=== PATIENT | male | born 1940 | race Caucasian/White ===

== ENCOUNTER → 2023-11-11 10:00 | Outpatient (REF) | payer MEDICARE, OTHER, SELFPAY | LOC: WDC 10:00 | PROVIDERS: ATTENDING PHYSICIAN Nurse Practitioner Adult Health; FAMILY PHYSICIAN Physician Assistant Medical | DX: N63.10 Unspecified lump in the right breast, unspecified quadrant (principal); N63.41 Unspecified lump in right breast, subareolar | CPT/HCPCS: 76642; 77062; 77066 ==

== ENCOUNTER → 2023-11-28 12:57 | Outpatient (REF) | payer OTHER, MEDICARE, SELFPAY ==
[2023-11-28 13:51] LABS: Potassium 4.4 mmol/L (3.5-5.1)
== END ==
LOC: OLAB 12:57
PROVIDERS: ATTENDING PHYSICIAN Student in an Organized Health Care Education/Training Program
DX: N18.6 End stage renal disease (principal)
CPT/HCPCS: 36415; 84132

== ENCOUNTER 2024-01-22 07:58 | Day surgery (SDC) | payer MEDICARE, OTHER, SELFPAY ==
[2024-01-22] VITALS (10 sets, daily range): BP systolic 108–145; BP diastolic 43–97; BMI 25.1
[2024-01-22 08:20] LABS: Hematocrit 29.3 % (39.0-52.0); Hemoglobin 9.1 g/dL (13.0-18.0); Mean Corp Hgb Conc. 31.1 g/dL (33.0-37.0); Mean Corpuscular Hgb 29.4 pg (27.0-31.0); Mean Corpuscular Volume 94.5 fL (80.0-94.0); Mean Platelet Volume 11.4 fL (7.4-10.4); Platelet Count 125 10^3/uL (130-400); Red Cell Dist. Width 16.6 % (11.5-14.5); White Blood Cell Count 5.7 10^3/uL (4.8-10.8)
[2024-01-22 08:39] LABS: Blood Urea Nitrogen 45 mg/dl (9-20); Carbon Dioxide 34 mmol/L (22-30); Chloride 94 mmol/L (98-107); Estimated Creatinine Clearance 11 ml/min; Glucose 99 mg/dl (70-99); Potassium 4.4 mmol/L (3.5-5.1); Sodium 136 mmol/L (135-145); eGFR 9.78
--- NOTE | 2024-01-22 09:46 | W.SUR.PREOP ---
Pre-Operative Surgical Note
-
I have examined this patient prior to the performance of the scheduled procedure.
The patient's condition is unchanged from the time of the current History and
Physical and the patient is able to undergo the scheduled procedure.
--- NOTE | 2024-01-22 11:09 | W.SUR.POST ---
Surgical Immediate Post Op
Note
Pre Op Diagnosis: ESRD
Post Op Diagnosis: ESRD
Procedure Performed: Right upper extremity fistulogram with angioplasty to outflow vein occlusion
Primary Surgeon: Aniceto Baker MD
Secondary Surgeons: N/A
Anesthesia: MAC
Estimated Blood Loss: Less than 5 cc
Fluids: See anesthesia flowsheet
Drains/Shunts: N/A
Specimens/Cultures: N/A
Doppler/Duplex/Angio (Y/N): Y
Complications: None
Operative Findings: Positive thrill following procedure
--- NOTE | 2024-01-22 13:26 | OR.RPT ---
Operative Report
Operative Report
PROCEDURE DATE: 01/22/2024
Preoperative diagnosis: End-stage renal disease on hemodialysis with prolonged bleeding after hemodialysis.
Postoperative diagnosis: Same
Procedure:
1. Right upper extremity fistulogram and central venogram.
2. Balloon angioplasty of the outflow vein occlusion with a 6 mm, 8 mm, 7 mm angioplasty balloons.
3. Supervision interpretation.
Surgeon: Samuel
Accounting Specialist: None
Complications: None
Anesthesia: Local, sedation
Fluoroscopy:
5.1 min
14 mGy
3.33 Gy.cm2
Indications for procedure:
Referred back by appraiser art due to prolonged bleeding after hemodialysis. Patient also noted to me some issues with flow on dialysis. Risk/benefits/alternatives of fistulogram were also discussed. Patient understood all wish to proceed.
Description of procedure:
Patient was identified, brought to the operating room. Placed on the table in the supine position. After the adequate administration of anesthesia, the patient was prepped and draped in the standard surgical fashion. A standard preoperative
timeout was undertaken and everybody was in agreement with the plan.
The outflow vein of the fistula was imaged under duplex (sterile ultrasound). It appeared in the outflow and the more proximal forearm there appeared to be a stenosis. Therefore I elected to puncture and a central facing direction. The outflow
cephalic vein of the radiocephalic arteriovenous fistula was punctured in the distal forearm in a central facing direction with a micropuncture kit under direct duplex ultrasound guidance. A 4 [place] sheath was then advanced over a 0.035 inch wire.
Fistulogram was obtained. This demonstrated a patent immediate outflow segment of the fistula. There was a moderate-sized collateral but the main outflow vein itself was occluded for segment of about 6 cm or 8 cm. There is reconstitution in the
antecubital fossa. Central venography did fail to demonstrate any significant central venous stenosis. At this point I had a wire past the area of occlusion already with a 0.035 inch wire. I then exchanged for a 0.018 inch wire. I performed
balloon angioplasty with a 6 mm angioplasty balloon of the occlusion area. Prior to doing this, however, due to the profile of the balloon size I needed to exchange for at least a 5 [place]er sheath. I therefore had used a 6 [place] sheath. Given the
slow deflation of the balloon I elected to switch to a 0.035 inch platform which I did. I then performed angioplasty again of that segment in the more proximal segment of the occlusion with a 6 mm long balloon. Completion angiogram now
demonstrated a good result. Significantly improved flow. However there was still some residual stenosis especially in the more proximal outflow. Therefore I then used an 8 mm angioplasty balloon with a prolonged inflation. I could not get the
balloon waist to resolve fully in the proximal outflow segment but it mostly resolved. Completion angiogram however demonstrated significant improvement. Mild intimal irregularity in the proximal outflow portion of the prior occluded segment.
Therefore I used a 7 mm shorter balloon (7 mm x 4 cm to reangioplasty that. Completion angiogram now demonstrated good result. Still mild intimal defect or dissection but did not appear flow-limiting and the main lumen was nicely patent now.
There is brisk flow in through the fistula and much less of flow in the collateral at this point. Therefore is very satisfied. The wires and catheters were withdrawn. A 4-0 Monocryl pursestring stitch was placed around the sheath entry site and
the sheath was withdrawn, the stitch was tied down. Manual pressure was also gently applied. The patient tolerated the procedure well. He had
Thrill in the fistula upon completion. Much less pulsatility.
== END 2024-01-22 13:12 | disposition home or self-care (01) ==
LOC: CATH 07:58
PROVIDERS: ATTENDING PHYSICIAN Surgery Vascular Surgery; FAMILY PHYSICIAN Physician Assistant Medical
DX: T82.838A Hemorrhage due to vascular prosthetic devices, implants and grafts, initial encounter (principal); T82.858A Stenosis of other vascular prosthetic devices, implants and grafts, initial encounter; Y83.2 Surgical operation with anastomosis, bypass or graft as the cause of abnormal reaction of the patient, or of later complication, without mention of misadventure at the time of the procedure; I12.0 Hypertensive chronic kidney disease with stage 5 chronic kidney disease or end stage renal disease; N18.6 End stage renal disease; Z99.2 Dependence on renal dialysis; Z87.891 Personal history of nicotine dependence
CPT/HCPCS: 36902; 80048; 85027; 85730; 86850; 86900; 86901; 93005; C1725; C1769; C1894; Q9967

== ENCOUNTER → 2024-04-06 10:40 | Outpatient (REF) | payer MEDICARE, OTHER, SELFPAY ==
[2024-04-06 11:44] LABS: % Basophils 0.6 % (0-2); % Eosinophils 2.7 % (0-6); % Immature Granulocytes 1.1 % (0-0.5); % Neutrophils 65.6 % (42.2-75.2); Absolute Basophils 0.1 10^3/uL (0-0.2); Absolute Eosinophils 0.2 10^3/uL (0-0.7); Absolute Immature Granulocytes 0.1 10^3/uL (0-0.05); Absolute Lymphocytes 1.5 10^3/uL (1.2-3.4); Absolute Monocytes 0.9 10^3/uL (0.1-0.6); Absolute Neutrophils 5.3 10^3/uL (1.4-6.5); Hematocrit 29.7 % (39.0-52.0); Hemoglobin 9.2 g/dL (13.0-18.0); Mean Corpuscular Volume 93.7 fL (80.0-94.0); Nucleated Red Blood Cells % 0 % (-); Platelet Count 151 10^3/uL (130-400); Red Blood Cell Count 3.17 10^6/uL (4.70-6.10); Red Cell Dist. Width 16.3 % (11.5-14.5); White Blood Cell Count 8.1 10^3/uL (4.8-10.8)
[2024-04-06 12:15] LABS: Iron 102 ug/dl (49-181)
[2024-04-06 12:25] LABS: Percent Saturation 54 % (20-50); Total Iron Binding Capacity 186 ug/dl (261-462)
[2024-04-06 13:13] LABS: Folate 19.4 ng/ml (2.76-20); Vitamin B12 > 1000 pg/ml (239-931)
== END ==
LOC: REG 10:40
PROVIDERS: ATTENDING PHYSICIAN Internal Medicine Hematology & Oncology; FAMILY PHYSICIAN Physician Assistant Medical
DX: N18.9 Chronic kidney disease, unspecified (principal); D46.9 Myelodysplastic syndrome, unspecified; D51.9 Vitamin B12 deficiency anemia, unspecified
CPT/HCPCS: 36415; 82607; 82728; 82746; 83540; 83550; 85025

== ENCOUNTER → 2024-04-27 09:36 | Outpatient (REF) | payer MEDICARE, OTHER, SELFPAY ==
[2024-04-27 11:17] LABS: ALT (SGPT) 17 U/L (0-50); AST (SGOT) 25 U/L (17-59); Albumin 4.4 g/dl (3.5-5.0); Alkaline Phosphatase 116 U/L (38-126); Blood Urea Nitrogen 43 mg/dl (9-20); Calcium 9.8 mg/dl (8.4-10.2); Carbon Dioxide 28 mmol/L (22-30); Chloride 95 mmol/L (98-107); Glucose 94 mg/dl (70-99); HDL Cholesterol 43 mg/dl; LDL Cholesterol, Calculated 45 mg/dl; Magnesium 2.8 mg/dl (1.6-2.3); Potassium 5.8 mmol/L (3.5-5.1); Sodium 135 mmol/L (135-145); Total Bilirubin 0.5 mg/dl (0.2-1.3); Total Cholesterol 105 mg/dl (50-199); Total Protein 6.9 g/dl (6.3-8.2); Triglyceride 88 mg/dl (10-149); Very Low Density Lipoprotein 17 mg/dl (0-30); eGFR 6.53
[2024-04-27 11:23] LABS: Glycohemoglobin (HgbA1c) 4.6 % (4.0-5.6)
== END ==
LOC: REG 09:36
PROVIDERS: ATTENDING PHYSICIAN Physician Assistant Medical
DX: Z00.00 Encounter for general adult medical examination without abnormal findings (principal); I10 Essential (primary) hypertension; N18.6 End stage renal disease; R73.01 Impaired fasting glucose; E78.2 Mixed hyperlipidemia; Z87.19 Personal history of other diseases of the digestive system
CPT/HCPCS: 36415; 80053; 80061; 83036; 83735

== ENCOUNTER → 2024-05-15 08:39 | Outpatient (REF) | payer MEDICARE, OTHER, SELFPAY | LOC: RAD 08:39 | PROVIDERS: ATTENDING PHYSICIAN Surgery Vascular Surgery; FAMILY PHYSICIAN Physician Assistant Medical | DX: I77.0 Arteriovenous fistula, acquired (principal) | CPT/HCPCS: 93990 ==

== ENCOUNTER 2025-02-23 17:27 | Inpatient (IN) | payer MEDICARE, OTHER, SELFPAY ==
[2025-02-23] VITALS (10 sets, daily range): BP systolic 95–136; BP diastolic 39–63; BMI 23.0; BMI 24.4
--- NOTE | 2025-02-23 13:06 | ED.GENMED ---
History of Present Illness
General
Chief Complaint: Weakness
Time Seen by Provider: 02/23/25 12:39
History of Present Illness
History of Present Illness:
84-year-old male with history of end-stage renal disease on dialysis presents to the emergency department for evaluation of chest congestion and coughing as well as fever and fatigue for the past 3 to 4 days. Came from dialysis today after
completing a full session, has not missed any dialysis sessions recently. Denies chest pain or dyspnea.
Past History
Past History
ED Past Medical History: HTN and Renal failure
ED Past Surgical History: Other
Social History
Tobacco: Non-smoker
Alcohol: None
Drug: None
Personal:
Living: with family
Employment: Retired
Family History
Family History: Other
Review of Systems
Review of Systems
Allergies reviewed?: Yes
All Other Systems: ROS reviewed and negative except as documented in HPI and ROS
Phy Exam
Physical Exam
Physical Exam:
GEN: Well appearing, NAD, WDWN
HEENT: Oral mucosa moist, no scleral icterus
Cardiac: Tachycardic with some irregularity, no murmur
Lung: Tachypneic, inspiratory and expiratory rhonchi heard throughout all lung shanks, does not clear with coughing
MSK: No gross deformity or injuries
Skin: Good color, no pallor or jaundice, no rashes. AV fistula in the right arm, strong thrill
Neuro: AO x3, moves all extremities freely
Psych: Calm, cooperative
Sepsis
Sepsis Screening
Sepsis Assessment: Sepsis
Sepsis Screen
Sepsis Screen: Sepsis
Date: 02/23/25
Time: 16:00
Course
Orders/Labs/Results
Orders:
Orders
02/23/25 12:42
Electrocardiogram (*1) Urgent
Reason for Study: Chest Pain
02/23/25 12:43
EKG- Treatment ONCE
02/23/25 12:50
CR Chest - 2 Views Urgent
Comment:
Reason For Exam: cough/fever
02/23/25 12:56
CMP [Comprehensive Metabolic Panel] Urgent
COVID-19 Antigen Urgent
Source: Nasal Swab
Complete Blood Count/With Diff Urgent
Influenza A+B Rapid Molecular Urgent
GIOVANI Source: Nasal Swab
Specimen Description:
02/23/25 12:58
Lactic Acid Urgent
02/23/25 13:00
Blood Culture Q30M
GIOVANI Source: Blood/Venous
Specimen Description:
02/23/25 14:11
Blood Culture Q30M
GIOVANI Source: Blood/Venous
Specimen Description:
02/23/25 14:32
Azithromycin 500 mg/250 ml [Zithromax Infusion] 500 mg in 250 ml IV NOW
CefTRIAXone [Rocephin] 1,000 mg IV NOW STA
Abnormal Lab Results
02/23/25
12:56
WBC 27.6 H 10^3/uL
(4.8-10.8)
RBC 3.75 L 10^6/uL
(4.70-6.10)
Hgb 10.9 L g/dL
(13.0-18.0)
Hct 34.9 L %
(39.0-52.0)
MCHC 31.2 L g/dL
(33.0-37.0)
RDW 19.3 H %
(11.5-14.5)
Plt Count 85 L 10^3/uL
(130-400)
MPV 12.3 H fL
(7.4-10.4)
Abs Immat Gran (auto) 0.2 H 10^3/uL
(0-0.05)
Absolute Neuts (auto) 25.6 H 10^3/uL
(1.4-6.5)
Absolute Lymphs (auto) 0.4 L 10^3/uL
(1.2-3.4)
Absolute Monos (auto) 1.5 H 10^3/uL
(0.1-0.6)
Immature Gran % 0.8 H %
(0-0.5)
Neutrophils % 92.5 H %
(42.2-75.2)
Lymphocytes % 1.3 L %
(20.5-51.1)
BUN 31 H mg/dl
(9-20)
Creatinine 4.8 H* mg/dL
(0.7-1.3)
Glucose 114 H mg/dl
(70-99)
AST 88 H U/L
(17-59)
02/23/25 12:56
02/23/25 12:56
Vital Signs
Initial and Last Documented VS:
Initial Vital Signs
Temp Pulse Resp BP Pulse Ox
100.3 F 105 28 136/56 93
02/23/25 12:38 02/23/25 12:38 02/23/25 12:38 02/23/25 12:38 02/23/25 12:38
Last Documented Vital Signs
Temp Pulse Resp BP Pulse Ox
100.3 F 101 27 119/50 95
02/23/25 12:38 02/23/25 15:30 02/23/25 15:30 02/23/25 15:00 02/23/25 15:45
MDM/Problems Addressed
MDM/Problems Addressed:
Patient with audible rhonchi and coughing as well as tachypnea and significant leukocytosis with fever, although chest x-ray shows no acute infiltrate we will treat for community-acquired pneumonia. Given his age and comorbidities including renal
disease on dialysis will admit to the hospitalist service for IV antibiotics
*Critical Care Note
Total Time (30-74mins, 75-104mins- exclusive of procedures): Not Applicable
ED Attending Note
-
Portions of this chart may have been created with voice recognition software.� Occasional wrong word or��sound alike� substitutions may have occurred due to the inherent limitations of voice recognition software.
Discharge Plan
Departure
Patient Disposition: Admit
Date of Disposition: 02/23/25
Time of Disposition: 14:35
Admit to: Med/Surg
Presentation/result/management discussed w/ accepting MD/DO: Hospitalist
Discharge Problem:
Community acquired pneumonia
Prescriptions:
No Action
multivitamin with folic acid [Tab-A-Mike] 1 TABLET tablet
1 tab PO HS
rosuvastatin 10 MG tablet
10 mg PO HS
[facility] 1 EACH tablet
1 ea PO DAILY
amlodipine 10 MG tablet
10 mg PO HS
calcium acetate 667 mg Tablet
1,334 mg PO BID@1200,1700
furosemide 80 mg tablet
80 mg PO DAILY
aspirin 325 mg Tablet
325 mg PO BIDPRN PRN (Reason: fever)
Velvet-Mike 0.8 mg tablet
1 tab PO HS
doxazosin 2 mg Tablet
2 mg PO HS
calcium acetate 667 mg Tablet
667 mg PO DAILY
pantoprazole 40 mg tablet,delayed release (DR/EC)
40 mg PO QPM
Referrals:
Nay Albert PA-C [Family Provider] -
Interventions
Interventions:
*Risk Screen - Suicide Last Done: 02/23/25 12:41
*General Assessment Last Done: 02/23/25 12:41
*Neglect/Abuse Screening Last Done: 02/23/25 12:41
*ED- Fall Risk Assessment Last Done: 02/23/25 12:41
*ED COVID-19 Vaccine History Last Done: 02/23/25 12:41
ED- Cardiac Assessment Last Done: 02/23/25 13:32
ED- Neurological Assessment Last Done: 02/23/25 13:32
ED- Pulmonary Assessment Last Done: 02/23/25 13:32
Discharge Date and Time
Print Language: BURMESE
[2025-02-23 13:25] LABS: COVID-19 Antigen Negative (Negative)
[2025-02-23 13:27] LABS: Lactic Acid 1.5 mmol/L (0.7-2.0)
[2025-02-23 13:29] LABS: Hematocrit 34.9 % (39.0-52.0); Hemoglobin 10.9 g/dL (13.0-18.0); Mean Corp Hgb Conc. 31.2 g/dL (33.0-37.0); Mean Corpuscular Hgb 29.1 pg (27.0-31.0); Mean Corpuscular Volume 93.1 fL (80.0-94.0); Mean Platelet Volume 12.3 fL (7.4-10.4); Platelet Count 85 10^3/uL (130-400); Red Blood Cell Count 3.75 10^6/uL (4.70-6.10); Red Cell Dist. Width 19.3 % (11.5-14.5); White Blood Cell Count 27.6 10^3/uL (4.8-10.8)
[2025-02-23 13:33] LABS: ALT (SGPT) 41 U/L (0-50); AST (SGOT) 88 U/L (17-59); Albumin 4.4 g/dl (3.5-5.0); Alkaline Phosphatase 90 U/L (38-126); Blood Urea Nitrogen 31 mg/dl (9-20); Calcium 9.3 mg/dl (8.4-10.2); Carbon Dioxide 28 mmol/L (22-30); Chloride 99 mmol/L (98-107); Estimated Creatinine Clearance 12 ml/min; Glucose 114 mg/dl (70-99); Potassium 4.9 mmol/L (3.5-5.1); Sodium 140 mmol/L (135-145); Total Bilirubin 0.7 mg/dl (0.2-1.3); Total Protein 7.3 g/dl (6.3-8.2); eGFR 11.44
[2025-02-23] MEDS: ROCEPHIN 1000 MG IV (14:46)
[2025-02-23 15:03] LABS: % Basophils 0.1 % (0-2); % Immature Granulocytes 0.8 % (0-0.5); % Lymphocytes 1.3 % (20.5-51.1); % Monocytes 5.3 % (1.7-9.3); % Neutrophils 92.5 % (42.2-75.2); Absolute Immature Granulocytes 0.2 10^3/uL (0-0.05); Absolute Lymphocytes 0.4 10^3/uL (1.2-3.4); Absolute Monocytes 1.5 10^3/uL (0.1-0.6); Absolute Neutrophils 25.6 10^3/uL (1.4-6.5); Nucleated Red Blood Cells % 0 % (-)
[2025-02-23] MEDS: ZITHROMAX INFUSION 250 IV (15:35)
--- NOTE | 2025-02-23 17:02 | HPS.HSE ---
Family Physician
-
Family Physician: Nay Albert
Chief Complaint
-
Cough, chest congestion, weakness
History of Present Illness
84-year-old male was in his usual state of health up until 3 days ago when he started developing cough and chest congestion. Loss of appetite.
Yesterday started with generalized weakness.
Denies history of pneumonia. Denies sick contacts. Denies chest pain or shortness of breath. Denies chills but did have a fever at home, 100.3 �F. Denies nausea or vomiting. 1 episode of diarrhea 2 days ago.
Has ESRD, gets dialysis Saturday, , Saturday. Last dialysis session was today.
Medical History
Past Medical History
Past Medical History: Reports Other
Additional Past Medical History:
ESRD requiring dialysis
Essential hypertension
Hyperlipidemia
Thrombocytopenia
Myelodysplastic syndrome
History of GI bleed
Polyneuropathy
Ambulatory dysfunction, uses a cane
Chronic anemia
Impaired fasting glucose
Past Surgical History: Reports Appendectomy, Tonsilectomy and Other
Additional Past Surgical History:
Right upper extremity AV fistula
Thyroglossal duct cyst removal
Social History
Tobacco: Former Smoker (Quit in the 1970s)
Alcohol: Occasional (1 or 2 glasses of wine per week)
Drug: None
Personal:
Living: With Family
Employment: Not Employed
Family History
Family History: Not pertinent
Allergies / Home Medications
Allergies reflects when Allergies were last updated in [facility].
Home Medications with original date entered in [facility]
Allergy/Medication List:
Allergies
Allergy/AdvReac Type Severity Reaction Status Date / Time
No Known Allergies Allergy Verified 02/23/25 12:40
Home Medications
multivitamin with folic acid 400 mcg tablet (Tab-A-Mike) 1 tab PO HS Supplement 02/21/21
rosuvastatin 10 mg tablet 10 mg PO HS High cholesterol 02/21/21
cartilage 40 mg-collagen II 10 mg-boron 5 mg-hyaluronate 3.3 mg tablet ([employer]) 1 ea PO DAILY herbal 09/07/21
amlodipine 10 mg tablet 10 mg PO HS Blood pressure 10/17/21
calcium acetate 667 mg tablet 1,334 mg PO BID@1200,1700 Kidney Disease 02/06/23
furosemide 80 mg tablet 80 mg PO DAILY Fluid retention/Swelling 02/06/23
aspirin 325 mg tablet 325 mg PO BIDPRN PRN fever 02/23/25
calcium acetate 667 mg tablet 667 mg PO DAILY 02/23/25
doxazosin 2 mg tablet 2 mg PO HS 02/23/25
pantoprazole 40 mg tablet,delayed release 40 mg PO QPM 02/23/25
vitamin B complex-vitamin C-folic acid 0.8 mg tablet (Velvet-Mike) 1 tab PO HS 02/23/25
Review of Systems
-
History Source: Patient and Family
A 12 point ROS was completed and negative except as noted: Yes
Physical Exam
Vital Signs
Vital Signs
Temp Pulse Resp BP Pulse Ox
100.3 F 93 20 108/56 94
02/23/25 12:38 02/23/25 16:15 02/23/25 16:00 02/23/25 16:00 02/23/25 16:15
Physical Exam
General: Well Developed, Well Nourished, No Apparent Distress and Comfortable
HEENT: NormoCephalic, Anicteric and Moist mucous membranes
Respiratory: Wheezes and Rhonchi
Cardiac: S1/S2 and Regular Rhythm
GI: Soft, Non Tender and Non Distended
Genito-urinary: Deferred by me
Musculoskeletal: No Clubbing, No Cyanosis and No Edema
Skin: Warm and Dry
Neuro: AO x 3
Hematologic/Lymphatic: No Lymphadenopathy
Psych: Calm
Laboratory Results
-
02/23/25 12:56
02/23/25 12:56
Laboratory Results
Lactic Acid Cancelled 02/23/25 17:45
Total Bilirubin 0.7 mg/dl (0.2-1.3) 02/23/25 12:56
AST 88 U/L (17-59) H 02/23/25 12:56
ALT 41 U/L (0-50) 02/23/25 12:56
Alkaline Phosphatase 90 U/L (38-126) 02/23/25 12:56
Troponin I Cancelled 02/23/25 12:42
Impression/Plan
-
Acute hypoxic respiratory insufficiency -pulse ox 90% on room air, etiology is likely sepsis and pneumonia. Currently on 4 L nasal cannula oxygen. Wean down as able.
Sepsis due to pneumonia -admit to [facility]. Presentation with tachycardia, leukocytosis, fever. Hemodynamically stable. IV fluid bolus for sepsis not administered in the emergency room due to ESRD, dialysis requirement. Can give gentle IV fluids
for 1 L overnight.
Continue current antibiotics. Check cultures. Check urinary antigens.
Given presentation with mild wheezing and rhonchi, add steroids and inhalers.
Surprisingly chest x-ray is read as clear. Check CT chest to evaluate for pneumonia. Discussed with patient and .
ESRD - on dialysis Saturday, , Saturday. Consult nephrology in AM.
Essential hypertension -stable.
Hyperlipidemia -rosuvastatin.
Myelodysplastic syndrome -with chronic anemia, thrombocytopenia.
Full code
Updated patient's at the bedside.
[2025-02-23] MEDS: DELTASONE 40 MG PO (18:50)
[2025-02-23] MEDS: PROTONIX 40 MG PO (18:50)
[2025-02-23] MEDS: PHOSLO 1334 MG PO (18:50)
[2025-02-23] MEDS: NSS 1000 IV (18:50)
[2025-02-23] MEDS: VENTOLIN NEBULES 2.5 MG INH (20:04)
[2025-02-23] MEDS: THERAGRAN 1 TABLET PO (21:28)
[2025-02-23] MEDS: CRESTOR 10 MG PO (21:28)
[2025-02-23] MEDS: MUCINEX 600 MG PO (21:28)
[2025-02-23] MEDS: HEPARIN 5000 UNITS SC (21:28)
[2025-02-23] MEDS: CARDURA PO (21:29)
[2025-02-24] VITALS (7 sets, daily range): BP systolic 86–135; BP diastolic 41–55; PULSE 84–115; O2SAT 95; BMI 23.5
--- NOTE | 2025-02-24 04:32 | PTCARENOTE ---
Patient's pulse ox on 3L of O2 was in the upper 80's briefly getting to 91% then dropping back down. Increase O2 to 4L. Pulse ox at 92%.
[2025-02-24 07:37] LABS: % Basophils 0.2 % (0-2); % Lymphocytes 2.9 % (20.5-51.1); % Monocytes 2.4 % (1.7-9.3); % Neutrophils 93.5 % (42.2-75.2); Absolute Immature Granulocytes 0.2 10^3/uL (0-0.05); Absolute Lymphocytes 0.6 10^3/uL (1.2-3.4); Absolute Monocytes 0.5 10^3/uL (0.1-0.6); Absolute Neutrophils 17.9 10^3/uL (1.4-6.5); Hematocrit 30.6 % (39.0-52.0); Hemoglobin 9.5 g/dL (13.0-18.0); Mean Corpuscular Hgb 29.1 pg (27.0-31.0); Mean Corpuscular Volume 93.6 fL (80.0-94.0); Mean Platelet Volume 12.7 fL (7.4-10.4); Nucleated Red Blood Cells % 0 % (-); Platelet Count 68 10^3/uL (130-400); Red Blood Cell Count 3.27 10^6/uL (4.70-6.10); Red Cell Dist. Width 19.4 % (11.5-14.5); White Blood Cell Count 19.2 10^3/uL (4.8-10.8)
[2025-02-24] MEDS: VENTOLIN NEBULES 2.5 MG INH ×4 (08:10→19:58)
[2025-02-24 08:11] LABS: ALT (SGPT) 38 U/L (0-50); AST (SGOT) 57 U/L (17-59); Albumin 3.6 g/dl (3.5-5.0); Alkaline Phosphatase 78 U/L (38-126); Blood Urea Nitrogen 46 mg/dl (9-20); Calcium 8.5 mg/dl (8.4-10.2); Carbon Dioxide 22 mmol/L (22-30); Chloride 101 mmol/L (98-107); Estimated Creatinine Clearance 9 ml/min; Glucose 127 mg/dl (70-99); Sodium 136 mmol/L (135-145); Total Bilirubin 0.7 mg/dl (0.2-1.3); eGFR 7.95
[2025-02-24] MEDS: LASIX 80 MG PO (09:43)
[2025-02-24] MEDS: MUCINEX 600 MG PO ×2 (09:44→20:59)
[2025-02-24] MEDS: HEPARIN 5000 UNITS SC ×2 (09:44→21:00)
[2025-02-24] MEDS: DELTASONE 40 MG PO (09:44)
[2025-02-24] MEDS: PHOSLO 667 MG PO (09:44)
--- NOTE | 2025-02-24 10:45 | W.CON.NEPH ---
Consultation
-
Date/Time Consultation Requested: 02/24/25 0730
Date/Time Consultation Performed: 02/24/25 1050
Requesting Provider: Alla Varma
Performing Provider: Aubree Martin
Reason for Consultation: ESRD
Medical History
-
Chief Complaint: cough, weakness
History of Present Illness:
84-year-old male end-stage renal disease on hemodialysis Tuesdays,, and Saturdays at [facility]. He has a right upper extremity AV fistula. He has hypertension on a multidrug regimen as well as anemia typically on NENO therapy
presented to ER yesterday with c/o cough, congestion and gen weakness for 3days. Since onset of symp he was sleeping most of the time at home. Denies sick contacts. Denies chest pain or shortness of breath. Denies chills but did have a fever at
home, 100.3 �F. Denies nausea or vomiting. 1 episode of diarrhea [address] chest shows left upper lobe PNA and requiring 2lit of O2. We are asked to assist in management of his ESRD. blood cultures growing staph aureus too.
Past Medical History
ESRD requiring dialysis TTS
Essential hypertension
Hyperlipidemia
Thrombocytopenia
Myelodysplastic syndrome
History of GI bleed
Polyneuropathy
Ambulatory dysfunction, uses a cane
Chronic anemia
Impaired fasting glucose
right UE AVF
Past Surgical History: Appendectomy, Tonsilectomy and Other (Right upper extremity AV fistula Thyroglossal duct cyst removal)
Social History
Tobacco: Former Smoker
Alcohol: Occasional
Drug: None
Personal:
Living: With Family
Family History
Family History: Not Pertinent
Allergies / Home Medications
Allergy/AdvReac Type Severity Reaction Status Date / Time
No Known Allergies Allergy Verified 02/23/25 12:40
�Medication �Instructions �Recorded �Confirmed �Type
multivitamin with folic acid 400 1 tab PO HS Supplement 02/21/21 02/23/25 History
mcg tablet (Tab-A-Mike)
rosuvastatin 10 mg tablet 10 mg PO HS High cholesterol 02/21/21 02/23/25 History
cartilage 40 mg-collagen II 10 1 ea PO DAILY herbal 09/07/21 02/23/25 History
mg-boron 5 mg-hyaluronate 3.3 mg
tablet ([employer])
amlodipine 10 mg tablet 10 mg PO HS Blood pressure 10/17/21 02/23/25 History
calcium acetate 667 mg tablet 1,334 mg PO BID@1200,1700 Kidney 02/06/23 02/23/25 History
Disease
furosemide 80 mg tablet 80 mg PO DAILY Fluid 02/06/23 02/23/25 History
retention/Swelling
aspirin 325 mg tablet 325 mg PO BIDPRN PRN fever 02/23/25 02/23/25 History
calcium acetate 667 mg tablet 667 mg PO DAILY Kidney Disease 02/23/25 02/23/25 History
doxazosin 2 mg tablet 2 mg PO HS Blood Pressure 02/23/25 02/23/25 History
pantoprazole 40 mg tablet,delayed 40 mg PO QPM Gastrointestinal Issue 02/23/25 02/23/25 History
release
vitamin B complex-vitamin C-folic 1 tab PO HS Supplement 02/23/25 02/23/25 History
acid 0.8 mg tablet (Velvet-Mike)
Review of Systems
-
All other systems: Negative unless noted
Physical Exam
Vital Signs
Vital Signs
Temp Pulse Resp BP Pulse Ox
97.6 F 76 16 121/51 98
02/24/25 16:37 02/24/25 16:37 02/24/25 16:37 02/24/25 16:37 02/24/25 16:37
Lab Results
WBC 19.2 10^3/uL (4.8-10.8) H 02/24/25 06:33
RBC 3.27 10^6/uL (4.70-6.10) L 02/24/25 06:33
Hgb 9.5 g/dL (13.0-18.0) L 02/24/25 06:33
Hct 30.6 % (39.0-52.0) L 02/24/25 06:33
Plt Count 68 10^3/uL (130-400) L 02/24/25 06:33
Sodium 136 mmol/L (135-145) 02/24/25 06:33
Potassium 5.0 mmol/L (3.5-5.1) 02/24/25 06:33
Chloride 101 mmol/L (98-107) 02/24/25 06:33
Carbon Dioxide 22 mmol/L (22-30) 02/24/25 06:33
BUN 46 mg/dl (9-20) H 02/24/25 06:33
Creatinine 6.5 mg/dL (0.7-1.3) H* 02/24/25 06:33
eGFR 7.95 02/24/25 06:33
Glucose 127 mg/dl (70-99) H 02/24/25 06:33
Calcium 8.5 mg/dl (8.4-10.2) 02/24/25 06:33
Albumin 3.6 g/dl (3.5-5.0) 02/24/25 06:33
Physical Exam
General: Awake, Alert, Oriented, AOx3, No Distress and Nontoxic
HEENT: EOMI, Anicteric, Conjunctivae Clear and Facial Symmetry
Respiratory: Crackels, Normal Excursion and Nonlabored Respirations
Cardiac: S1/S2 and Regular Rate/Rhythm
Breast: Deferred by me
Abdomen: Soft, Nontender and Nondistended
Musculoskeletal: No Cyanosis and No Edema
Neuro: Nonfocal/Grossly Intact
Psych: Mood/afflect pleasant, Insight/judgement good and Appropriate
Data Reviewed
-
Radiology: Report Reviewed by me and Discussed with Patient
Labs: Labs Reviewed by me and Discussed with Patient
Assessment/Plan
-
IMP:
Acute hypoxic respiratory insufficiency
Staph aureus sepsis
Left upper lobe PNA
ESRD requiring dialysis TTS
Essential hypertension
Hyperlipidemia
Thrombocytopenia
Myelodysplastic syndrome
History of GI bleed
Polyneuropathy
Ambulatory dysfunction, uses a cane
Chronic anemia
right UE AVF
Plan:
a/w PNA, bld cx staph aureus
completed HD yesterday
cont abx per ID
renal diet
HD tomorrow
monitor bps, seem soft today, hold CCB
--- NOTE | 2025-02-24 11:37 | PHA.VAN.IN ---
Assessment
- Assessment
Renal Function: Patient has ESRD, on chronic Hemodialysis
Hemodialysis Schedule: TThSa
Concomitant Antimicrobials: ceftriaxone, azithromycin
Plan
- Plan
Initial / Loading Dose: 1500mg - administration pending
Maintenance Regimen: dosing by level / HD
Monitoring: random pre-HD 02/25
Pharmacokinetics Vancomycin I
- -
Patient Age: 84
Patient Sex: Male
Vancomycin Day #: 1
Indication: Bacteremia
Requesting Provider: Dr. Valenzuela
Pertinent Antimicrobial Allergies:
NKDA
Height / Weight:
Height 5 ft 9.5 in
Actual Weight 73.17 kg
Pertinent Past Medical History: ESRD on HD TuThSa, MDS
- Vital Signs / Lab Results
Temp Pulse Resp BP Pulse Ox
98.5 F 65 16 116/51 92
02/24/25 08:19 02/24/25 08:19 02/24/25 08:19 02/24/25 08:19 02/24/25 10:06
Lab Results - Hematology
02/23/25 02/24/25
12:56 06:33
WBC 27.6 H 19.2 H
Lab Results - Chemistry
02/23/25 02/24/25
12:56 06:33
BUN 31 H 46 H
Creatinine 4.8 H* 6.5 H*
Estimated Creat Clear 12 9
Albumin 4.4 3.6
02/23/25 02/23/25 02/23/25
12:58 13:45 17:45
Lactic Acid 1.5 Cancelled Cancelled
Microbiology Results
02/23/25 13:00 Blood Culture - Preliminary
Blood/Venous Staphylococcus aureus
Gram Stain - Final
02/23/25 14:11 Blood Culture - Preliminary
Blood/Venous Positive culture in progress
Gram Stain - Final
02/23/25 12:56 Influenza Types A & B (GRACE) - Final
Nasal Swab Negative for Influenza A & B, NAAT
Negative results must be combined with clinical observations
and patient history.
Nucleic Acid Amplification test (NAAT)performed on the
[employer] platform.
--- NOTE | 2025-02-24 11:37 | W.PN.HOSP.TC ---
Today's Communication/Plan
-
Consult ID
Add vancomycin
Assessment / Plan
Assessment / Plan
Gen-AAOx3, NAD
HEENT-NC, AT, anicteric, clear oral mm
Neck-supple
CV-reg, no M, +S1/S2
Lungs-clear B/L
Abd-soft, NT, ND
Ext-no edema
Musculoskeletal-no cyanosis, clubbing
Skin-warm and dry
Neuro-grossly non-focal
Psych-calm, cooperative
Acute hypoxic respiratory insufficiency -pulse ox 90% on room air, etiology is likely sepsis and possible pneumonia. Currently on 2 L nasal cannula oxygen. Wean down as able.
Staph aureus sepsis -source of infection unclear, differential diagnosis includes bacteremia due to AV fistula from dialysis versus pneumonia.
Blood culture sensitivity pending. Add IV vancomycin. Consult infectious disease. Repeat blood cultures.\\
CT chest shows parenchymal opacity in the anterior apex of the left upper lobe. Will need repeat study in 4-6 weeks to document clearance.
WBC count trending down. Afebrile.
ESRD - on dialysis Saturday, , Saturday. Nephrology consulted.
Essential hypertension -stable.
Hyperlipidemia -rosuvastatin.
Myelodysplastic syndrome -with chronic anemia, thrombocytopenia.
Full code
Anticipated Discharge: > 48 hours
Subjective/Interval History
-
Date of Service: February 24, 2025
Patient seen and examined. Feeling better, less weakness. No dyspnea on exertion.
Objective Data
-
Labs:
Laboratory Results
02/24/25
06:33
WBC 19.2 H
Hgb 9.5 L
Hct 30.6 L
Plt Count 68 L
Sodium 136
Potassium 5.0
Chloride 101
Carbon Dioxide 22
BUN 46 H
Creatinine 6.5 H*
Glucose 127 H
Calcium 8.5
Total Bilirubin 0.7
AST 57
ALT 38
Alkaline Phosphatase 78
Vital Signs:
Vital Signs
Temp Pulse Resp BP Pulse Ox
98.5 F 65 16 116/51 92
02/24/25 08:19 02/24/25 08:19 02/24/25 08:19 02/24/25 08:19 02/24/25 10:06
Review of Systems
-
History Source: Patient
All other systems: Reviewed and negative
--- NOTE | 2025-02-24 12:17 | CON.ID ---
Consultation
-
Date/Time Consultation Requested: February 24, 2025 1126
Date/Time Consultation Performed: February 24, 2025 1230
Requesting Provider: Dr. Raul Valenzuela
Performing Provider: Dr. Savannah Staples
Reason for Consultation: Staph sepsis, CAP
Chief Complaint / Past History
Chief Complaint
Weakness, cough
History of Present Illness
84-year-old male with history of end-stage renal disease on hemodialysis via right upper extremity AV fistula, chronic thrombocytopenia who presented to the ED February 23 due to weakness and cough.� He states he started feeling unwell on January
.� He slept most of the day.� On Saturday he continued to poorly with loss of appetite.� He stayed in bed most of the time.� He was was coughing.� He coughed up mucus.� No sinus congestion.� No headache.� He went to dialysis on Saturday.� He was so
weak he could hardly ambulate to his car. �He was therefore directed to the ER.� Temperature 100.3.� White count 27.6.� Chest x-ray no acute pathology.� Chest CT showed left upper lobe opacity.� He was started on ceftriaxone and azithromycin.� The
admission blood cultures x 2 are growing Staphylococcus aureus.� Patient reports he is still coughing but unable to produce sputum.� He does feel better today.� He denies ill contacts.� No nausea or vomiting.� No diarrhea.
Past History
Additional Past Medical History:
Hypertension
End-stage renal disease on dialysis T//S via right upper extremity AV fistula
Chronic thrombocytopenia
Myelodysplastic syndrome
Dyslipidemia
Polyneuropathy
Appendectomy
Thyroglossal duct cyst removal
Allergy History:
No Known Allergies Allergy (Verified 02/23/25 12:40)
Medications Reviewed: Yes
Current Antibiotics:
Ceftriaxone
Azithromycin
Social History
Tobacco: Former Smoker
Alcohol: Occasional
Drug: None
Personal:
Living: With Family
Review of Systems
Review of Systems
General: Change in Appetite
HEENT: Negative Sinus Problems, Headache or Pharyngitis
Respiratory: Cough; Negative Dyspnea or Sputum Production
Gasteroenterology: Negative Nausea, Vomiting or Diarrhea
Genital / Urological: Negative Flank Pain
Endocrine: Weakness and Fatigue
Skin / Hair / Nails: Negative Rash
All systems: All other systems were reviewed and were negative
Vital Signs
Temp Pulse Resp BP Pulse Ox
98.5 F 65 16 116/51 92
02/24/25 08:19 02/24/25 08:19 02/24/25 08:19 02/24/25 08:19 02/24/25 10:06
Physical Exam
Physical Exam
Constitutional: No Acute Distress and Comfortable
Eyes: No Conjunctival Hemorrhage and Sclera Anicteric
Cardiovascular: Regular Rate and S1/S2
Pulmonary: Clear; Negative Rales or Rhonchi
Gastrointestinal: Soft, Non Tender, Non Distended and Normal Bowel Sounds
Extremities: Negative Edema, Splinter Hemorrhage or Janeway Lesions
Neurological: AO x 3
Lab / Diagnostic Study Results
02/24/25 06:33
02/24/25 06:33
Abs Immat Gran (auto) 0.2 10^3/uL (0-0.05) H 02/24/25 06:33
Absolute Neuts (auto) 17.9 10^3/uL (1.4-6.5) H 02/24/25 06:33
Absolute Lymphs (auto) 0.6 10^3/uL (1.2-3.4) L 02/24/25 06:33
Absolute Monos (auto) 0.5 10^3/uL (0.1-0.6) 02/24/25 06:33
Absolute Basos (auto) 0.0 10^3/uL (0-0.2) 02/24/25 06:33
Immature Gran % 1.0 % (0-0.5) H 02/24/25 06:33
Neutrophils % 93.5 % (42.2-75.2) H 02/24/25 06:33
Lymphocytes % 2.9 % (20.5-51.1) L 02/24/25 06:33
Monocytes % 2.4 % (1.7-9.3) 02/24/25 06:33
Eosinophils % 0.0 % (0-6) 02/24/25 06:33
Basophils % 0.2 % (0-2) 02/24/25 06:33
Lactic Acid Cancelled 02/23/25 17:45
Microbiology Results
Micro:
02/23/25 13:00 Blood Culture - Preliminary
Blood/Venous Staphylococcus aureus
Gram Stain - Final
02/23/25 14:11 Blood Culture - Preliminary
Blood/Venous Positive culture in progress
Gram Stain - Final
02/24/25 02:54 MRSA Screen - Pending
Nose
02/23/25 12:56 Influenza Types A & B (GRACE) - Final
Nasal Swab Negative for Influenza A & B, NAAT
Negative results must be combined with clinical observations
and patient history.
Nucleic Acid Amplification test (NAAT)performed on the
[employer] platform.
02/23/[address]: Parenchymal opacity in the anterior apex of the left upper lobe, which could be infectious/inflammatory or neoplastic.
Assessment / Plan
# Staph aureus bacteremia, likely lung source
# VARGAS pneumonia
# Leukocytosis
# ESRD on HD via AVF
-Start cefazolin 1g IV q24.
-DC ceftriaxone/azithromycin.
- Check sputum cx, if able
-TTE
-Repeat blood cultures x 2 in am.
-Trend wbc.
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
Hypertension
End-stage renal disease on dialysis T/Th/S via right upper extremity AV fistula
Chronic thrombocytopenia
Myelodysplastic syndrome
Dyslipidemia
Polyneuropathy
Appendectomy
Thyroglossal duct cyst removal
[2025-02-24] MEDS: PHOSLO 1334 MG PO ×2 (14:12→16:29)
[2025-02-24] MEDS: ANCEF 5 IV (14:12)
[2025-02-24] MEDS: VANCOCIN 530 MG IV (14:14)
--- NOTE | 2025-02-24 15:58 | CM ---
CM reviewed chart, patient seen bedside, initial assessment completed. Patient resides in an apartment on the 5th floor, elevator access. Patient has a cane at home and RW, denies O2 at home, currently on O2. Patient receives HD , Sat, 5:30
a.m. at [facility]. Patient denies VN or SNF history. Patient confirms PCP N[facility], pharmacy [facility], confirms prescription coverage. CM discussed PT recommendations of VN, patient reports he is still driving, is
active with the senior center. CM will continue to follow for all discharge planning needs.
Plan; home with continuance of outpatient HD
[facility]:

(Center Phone)

(Center Fax)
--- NOTE | 2025-02-24 16:02 | DOWNTIME ---
There was a [employer] Downtime on 02/24/2025 from 1230 to 02/24/2025 at 1550. Downtime documentation of patient's care, including medication administrations, has been reconciled in the electronic record per guidelines. Refer to the
patient's paper chart under the miscellaneous tab to see printed paper medication records and downtime forms.
[2025-02-24] MEDS: PROTONIX 40 MG PO (16:29)
[2025-02-24] MEDS: THERAGRAN 1 TABLET PO (20:59)
[2025-02-24] MEDS: CRESTOR 10 MG PO (20:59)
[2025-02-24] MEDS: CARDURA PO (21:00)
[2025-02-25 06:00] VITALS: BMI 24.3
[2025-02-25 07:00] VITALS: BP 165/54
[2025-02-25] MEDS: VENTOLIN NEBULES 2.5 MG INH (07:26)
[2025-02-25] MEDS: PHOSLO PO (09:00)
[2025-02-25 09:07] LABS: % Basophils 0.1 % (0-2); % Immature Granulocytes 1.8 % (0-0.5); % Lymphocytes 3.9 % (20.5-51.1); % Monocytes 5.5 % (1.7-9.3); % Neutrophils 88.7 % (42.2-75.2); Absolute Immature Granulocytes 0.3 10^3/uL (0-0.05); Absolute Lymphocytes 0.7 10^3/uL (1.2-3.4); Absolute Neutrophils 16.1 10^3/uL (1.4-6.5); Hematocrit 27.8 % (39.0-52.0); Mean Corp Hgb Conc. 32.4 g/dL (33.0-37.0); Mean Corpuscular Hgb 29.3 pg (27.0-31.0); Mean Corpuscular Volume 90.6 fL (80.0-94.0); Nucleated Red Blood Cells % 0 % (-); Platelet Count 78 10^3/uL (130-400); Red Blood Cell Count 3.07 10^6/uL (4.70-6.10); White Blood Cell Count 18.1 10^3/uL (4.8-10.8)
--- NOTE | 2025-02-25 09:14 | W.PN.HOSP.TC ---
Today's Communication/Plan
-
Continue antibiotics
Repeat blood cultures
Echocardiogram
Dialysis today
Assessment / Plan
Assessment / Plan
Gen-AAOx3, NAD
HEENT-NC, AT, anicteric, clear oral mm
Neck-supple
CV-reg, no M, +S1/S2
Lungs-clear B/L
Abd-soft, NT, ND
Ext-no edema
Musculoskeletal-no cyanosis, clubbing
Skin-warm and dry
Neuro-grossly non-focal
Psych-calm, cooperative
Acute hypoxic respiratory insufficiency -pulse ox 90% on room air, etiology is likely sepsis and possible pneumonia. Currently on 1 L nasal cannula oxygen. Wean down as able.
Wheezing and rhonchi resolved. Discontinue further steroids. Change nebs to as needed.
Staph aureus sepsis -source of infection unclear, differential diagnosis includes bacteremia due to AV fistula from dialysis versus pneumonia.
Blood culture sensitivity pending. Currently on IV cefazolin per ID. Repeat blood cultures to be drawn today. Echocardiogram pending.
CT chest shows parenchymal opacity in the anterior apex of the left upper lobe. Will need repeat study in 4-6 weeks to document clearance.
WBC count trending down. Afebrile.
ESRD - on dialysis Saturday, , Saturday. Nephrology consulted.
Essential hypertension -stable.
Hyperlipidemia -rosuvastatin.
Myelodysplastic syndrome -with chronic anemia, thrombocytopenia.
Full code
Anticipated Discharge: > 48 hours
Subjective/Interval History
-
Date of Service: February 25, 2025
Patient seen and examined. Feeling better, weakness is improving. No complaints.
Objective Data
-
Labs:
Laboratory Results
02/25/25
07:18
WBC 18.1 H
Hgb 9.0 L
Hct 27.8 L
Plt Count 78 L
Sodium Pending
Potassium Pending
Chloride Pending
Carbon Dioxide Pending
BUN Pending
Creatinine Pending
Glucose Pending
Calcium Pending
Total Bilirubin Pending
AST Pending
ALT Pending
Alkaline Phosphatase Pending
Vital Signs:
Vital Signs
Temp Pulse Resp BP Pulse Ox
97.4 F 72 16 165/54 94
02/24/25 23:45 02/25/25 07:31 02/25/25 07:31 02/25/25 07:00 02/25/25 07:31
I&O
02/24/25 02/25/25 02/26/25
06:59 06:59 06:59
Intake Total 327 / 327
Balance 327 / 327
Review of Systems
-
History Source: Patient
All other systems: Reviewed and negative
[2025-02-25 09:38] LABS: ALT (SGPT) 29 U/L (0-50); AST (SGOT) 37 U/L (17-59); Albumin 3.4 g/dl (3.5-5.0); Alkaline Phosphatase 83 U/L (38-126); Blood Urea Nitrogen 75 mg/dl (9-20); Calcium 8.9 mg/dl (8.4-10.2); Carbon Dioxide 21 mmol/L (22-30); Chloride 98 mmol/L (98-107); Estimated Creatinine Clearance 8 ml/min; Glucose 117 mg/dl (70-99); Potassium 4.7 mmol/L (3.5-5.1); Sodium 131 mmol/L (135-145); Total Bilirubin 0.7 mg/dl (0.2-1.3); Total Protein 5.9 g/dl (6.3-8.2); eGFR 6.49
[2025-02-25] MEDS: DELTASONE PO (09:51)
[2025-02-25] MEDS: HEPARIN 5000 UNITS SC ×2 (09:52→20:45)
[2025-02-25] MEDS: MUCINEX 600 MG PO ×2 (09:52→20:36)
[2025-02-25] MEDS: RETACRIT 4000 UNITS IV (11:11)
--- NOTE | 2025-02-25 12:24 | W.PN.NEPH.HD ---
Assessment
-
pt seen during HD
vitals stable
UF as tolerated
AVF functions well
weanO2 as able
abx per ID
Progress Note - Hemodialysis
-
Date of Service: February 25, 2025
Duration: 30 minutes and 3 hours
Potassium Bath: 2
Calcium Bath: 2.5
Opti-Dialyzer: 160
Ultrafiltration: Other (1.5-2kg)
Blood Flow: 400
Dialysate Flow: 600
Heparin: no
EPO: 4000
[2025-02-25] MEDS: LASIX 80 MG PO (12:42)
[2025-02-25] MEDS: PHOSLO 1334 MG PO ×2 (12:46→17:52)
[2025-02-25] MEDS: ANCEF 5 IV (12:46)
[2025-02-25] MEDS: MIRALAX 17 GRAMS PO (12:46)
--- NOTE | 2025-02-25 14:53 | W.PN.ID1 ---
Date of Service
Date of Service: February 25, 2025
Today's Communication
TTE
Continue cefazolin.
Assessment / Plan
# Staph aureus bacteremia, likely lung source
# VARGAS pneumonia
# Leukocytosis - slightly improved
# ESRD on HD via AVF
- Unable to produce sputum for cx
-TTE
-Follow repeat blood cultures x 2 .
-Continue cefazolin 1g IV q24 (d2)
-Trend wbc.
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
Hypertension
End-stage renal disease on dialysis T//S via right upper extremity AV fistula
Chronic thrombocytopenia
Myelodysplastic syndrome
Dyslipidemia
Polyneuropathy
Appendectomy
Thyroglossal duct cyst removal
Chief Complaint
-: Pneumonia and Bacteremia
Subjective / Review of Systems
He reports feeling better.
Vital Signs / Physical Exam
Vital Signs
Vital Signs
Temp Pulse Resp BP Pulse Ox
97.6 F 70 16 134/59 94
02/25/25 07:00 02/25/25 12:42 02/25/25 07:31 02/25/25 12:42 02/25/25 07:31
Physical Exam
Constitutional: No Acute Distress and Comfortable
Eyes: No Conjunctival Hemorrhage and Sclera Anicteric
Cardiovascular: Regular Rate and S1/S2
Pulmonary: Clear
Gastrointestinal: Soft, Non Tender, Non Distended and Normal Bowel Sounds
Extremities: Negative Edema
Neurological: AO x 3
Objective Data
Lab Data
Lab Results
02/25/25 07:18
02/25/25 07:18
Estimated Creat Clear 8 ml/min 02/25/25 07:18
Lactic Acid Cancelled 02/23/25 17:45
Total Bilirubin 0.7 mg/dl (0.2-1.3) 02/25/25 07:18
AST 37 U/L (17-59) 02/25/25 07:18
ALT 29 U/L (0-50) 02/25/25 07:18
Alkaline Phosphatase 83 U/L (38-126) 02/25/25 07:18
Most recent labs reviewed.
Micro Results:
02/25/25 07:18 Blood Culture - Pending
Blood/Venous
02/23/25 14:11 Blood Culture - Preliminary
Blood/Venous Staphylococcus aureus
Gram Stain - Final
02/23/25 13:00 Blood Culture - Preliminary
Blood/Venous Staphylococcus aureus
Gram Stain - Final
02/25/25 07:18 Blood Culture - Pending
Blood/Venous
02/24/25 02:54 MRSA Screen - Final
Nose No Methicillin Resistant Staphylococcus aureus isolated.
02/23/25 12:56 Influenza Types A & B (GRACE) - Final
Nasal Swab Negative for Influenza A & B, NAAT
Negative results must be combined with clinical observations
and patient history.
Nucleic Acid Amplification test (NAAT)performed on the
[employer] platform.
02/23/[address]: Parenchymal opacity in the anterior apex of the left upper lobe, which could be infectious/inflammatory or neoplastic.
[2025-02-25 15:00] VITALS: BP 129/57
--- NOTE | 2025-02-25 15:24 | CM ---
CM reviewed chart and met with pt at bedside. Remains on O2.
Plan: DC home, continue OP dialysis, will continue to follow for DC needs
[2025-02-25] MEDS: PROTONIX 40 MG PO (17:53)
[2025-02-25] MEDS: THERAGRAN 1 TABLET PO (21:49)
[2025-02-25] MEDS: CARDURA 2 MG PO (21:49)
[2025-02-25] MEDS: CRESTOR 10 MG PO (21:52)
[2025-02-25 23:15] VITALS: BP 123/66
[2025-02-26 06:00] VITALS: BMI 23.3
[2025-02-26 07:41] LABS: Hematocrit 30.2 % (39.0-52.0); Hemoglobin 9.5 g/dL (13.0-18.0); Mean Corp Hgb Conc. 31.5 g/dL (33.0-37.0); Mean Corpuscular Volume 92.1 fL (80.0-94.0); Mean Platelet Volume 13.4 fL (7.4-10.4); Platelet Count 103 10^3/uL (130-400); Red Blood Cell Count 3.28 10^6/uL (4.70-6.10); Red Cell Dist. Width 19.3 % (11.5-14.5); White Blood Cell Count 13.8 10^3/uL (4.8-10.8)
[2025-02-26 08:06] VITALS: BP 148/58
[2025-02-26] MEDS: MUCINEX 600 MG PO ×2 (08:10→21:46)
[2025-02-26] MEDS: MIRALAX 17 GRAMS PO (08:10)
[2025-02-26] MEDS: PHOSLO 667 MG PO (08:10)
[2025-02-26] MEDS: LASIX 80 MG PO (08:11)
[2025-02-26] MEDS: HEPARIN 5000 UNITS SC ×2 (08:11→21:44)
[2025-02-26 08:22] LABS: % Basophils 0.2 % (0-2); % Eosinophils 1.2 % (0-6); % Immature Granulocytes 2.8 % (0-0.5); % Lymphocytes 9.2 % (20.5-51.1); % Monocytes 9.3 % (1.7-9.3); % Neutrophils 77.3 % (42.2-75.2); Absolute Eosinophils 0.2 10^3/uL (0-0.7); Absolute Immature Granulocytes 0.4 10^3/uL (0-0.05); Absolute Lymphocytes 1.3 10^3/uL (1.2-3.4); Absolute Monocytes 1.3 10^3/uL (0.1-0.6); Absolute Neutrophils 10.7 10^3/uL (1.4-6.5); Nucleated Red Blood Cells % 0 % (-)
--- NOTE | 2025-02-26 09:56 | W.PN.NEPH.PH ---
Today's Communication / Plan
-
No acute need for dialysis today
Assessment/Plan
-
IMP:
Acute hypoxic respiratory insufficiency
Staph aureus sepsis
Left upper lobe PNA
ESRD requiring dialysis TTS
Essential hypertension
Hyperlipidemia
Thrombocytopenia
Myelodysplastic syndrome
History of GI bleed
Polyneuropathy
Ambulatory dysfunction, uses a cane
Chronic anemia
right UE AVF
Plan:
a/w PNA, bld cx staph aureus
cont abx per ID
renal diet
HD tomorrow
monitor bps, seem soft today, hold CCB
-
-
Date of Service: February 26, 2025
CC / HPI / ROS
-
Chief Complaint:
ESRD
History of Present Illness:
Presents with shortness of breath pneumonia
Review of Systems:
cough no chest pain no shortness of breath
Labs
-
Labs:
WBC 13.8 10^3/uL (4.8-10.8) H 02/26/25 06:47
RBC 3.28 10^6/uL (4.70-6.10) L 02/26/25 06:47
Hgb 9.5 g/dL (13.0-18.0) L 02/26/25 06:47
Hct 30.2 % (39.0-52.0) L 02/26/25 06:47
Plt Count 103 10^3/uL (130-400) L D 02/26/25 06:47
Sodium 131 mmol/L (135-145) L 02/25/25 07:18
Potassium 4.7 mmol/L (3.5-5.1) 02/25/25 07:18
Chloride 98 mmol/L (98-107) 02/25/25 07:18
Carbon Dioxide 21 mmol/L (22-30) L 02/25/25 07:18
BUN 75 mg/dl (9-20) H 02/25/25 07:18
Creatinine 7.7 mg/dL (0.7-1.3) H* 02/25/25 07:18
eGFR 6.49 02/25/25 07:18
Glucose 117 mg/dl (70-99) H 02/25/25 07:18
Calcium 8.9 mg/dl (8.4-10.2) 02/25/25 07:18
Albumin 3.4 g/dl (3.5-5.0) L 02/25/25 07:18
Physical Exam
-
Vital Signs:
Vital Signs
Temp Pulse Resp BP Pulse Ox
98.4 F 72 20 148/58 93
02/26/25 08:06 02/26/25 08:06 02/26/25 08:06 02/26/25 08:06 02/26/25 08:06
Respiratory:: Right: Rhonchi
Lung Excursion:: Normal
Abdomen:: Soft
Bowel Sounds:: Normal
Extremity Edema:: None: Bilateral:
--- NOTE | 2025-02-26 10:03 | W.PN.ID1 ---
Date of Service
Date of Service: February 26, 2025
Today's Communication
Continue cefazolin.
Assessment / Plan
# Uncomplicarted Staph aureus (MSSA) bacteremia, likely lung source
# VARGAS pneumonia
# Leukocytosis - trending down
# ESRD on HD via AVF
-TTE: stable, no vege
-Follow repeat blood cultures x 2, pending
-Change cefazolin to 2g/2g/3g T/Th/S with dialysis through 03/13/25.
-Trend wbc.
- Possible DC tomorrow after HD if repeat blood cultures negative.
-Infusion sheet submitted to case operator to fax to HD.
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
Hypertension
End-stage renal disease on dialysis T/Th/S via right upper extremity AV fistula
Chronic thrombocytopenia
Myelodysplastic syndrome
Dyslipidemia
Polyneuropathy
Appendectomy
Thyroglossal duct cyst removal
Chief Complaint
-: Pneumonia and Bacteremia
Subjective / Review of Systems
Still coughing with phlegm output. + chest discomfort from coughing.
Vital Signs / Physical Exam
Vital Signs
Vital Signs
Temp Pulse Resp BP Pulse Ox
98.4 F 72 20 148/58 93
02/26/25 08:06 02/26/25 08:06 02/26/25 08:06 02/26/25 08:06 02/26/25 08:06
Physical Exam
Constitutional: No Acute Distress
Cardiovascular: Regular Rate and S1/S2
Pulmonary: Clear
Gastrointestinal: Soft, Non Tender, Non Distended and Normal Bowel Sounds
Extremities: Negative Edema
Neurological: AO x 3
Objective Data
Lab Data
Lab Results
02/26/25 06:47
02/25/25 07:18
Estimated Creat Clear 8 ml/min 05/29/25 07:18
Lactic Acid Cancelled 02/23/25 17:45
Total Bilirubin 0.7 mg/dl (0.2-1.3) 02/25/25 07:18
AST 37 U/L (17-59) 02/25/25 07:18
ALT 29 U/L (0-50) 02/25/25 07:18
Alkaline Phosphatase 83 U/L (38-126) 02/25/25 07:18
Most recent labs reviewed.
Micro Results:
02/25/25 07:18 Blood Culture - Preliminary
Blood/Venous No Growth in 24 hours- Final report to follow
02/23/25 14:11 Blood Culture - Final
Blood/Venous S aureus-Methicillin Sensitive
Gram Stain - Final
02/23/25 13:00 Blood Culture - Final
Blood/Venous S aureus-Methicillin Sensitive
Gram Stain - Final
02/25/25 07:18 Blood Culture - Pending
Blood/Venous
02/24/25 02:54 MRSA Screen - Final
Nose No Methicillin Resistant Staphylococcus aureus isolated.
02/23/25 12:56 Influenza Types A & B (GRACE) - Final
Nasal Swab Negative for Influenza A & B, NAAT
Negative results must be combined with clinical observations
and patient history.
Nucleic Acid Amplification test (NAAT)performed on the
[employer] platform.
02/23/[address]: Parenchymal opacity in the anterior apex of the left upper lobe, which could be infectious/inflammatory or neoplastic.
--- NOTE | 2025-02-26 10:33 | W.PN.HOSP.TC ---
Today's Communication/Plan
-
Continue current care
Assessment / Plan
Assessment / Plan
Gen-AAOx3, NAD
HEENT-NC, AT, anicteric, clear oral mm
Neck-supple
CV-reg, no M, +S1/S2
Lungs-clear B/L
Abd-soft, NT, ND
Ext-no edema
Musculoskeletal-no cyanosis, clubbing
Skin-warm and dry
Neuro-grossly non-focal
Psych-calm, cooperative
Acute hypoxic respiratory insufficiency -pulse ox 90% on room air, etiology is likely sepsis and possible pneumonia. Currently on 1 L nasal cannula oxygen. Wean down as able.
Wheezing and rhonchi resolved. Discontinue further steroids. Change nebs to as needed.
Staph aureus sepsis -source of infection pneumonia as per infectious disease. Repeat blood cultures negative. Sepsis resolved. Leukocytosis improving. Afebrile.
Currently on IV cefazolin per ID. No vegetation noted on transthoracic echocardiogram.
ID recommends cefazolin on dialysis to continue after discharge, end date March 13.
Community-acquired pneumonia -present on admission. CT chest shows parenchymal opacity in the anterior apex of the left upper lobe. Will need repeat study in 4-6 weeks to document clearance.
WBC count trending down. Afebrile.
ESRD - on dialysis Saturday, , Saturday. Nephrology consulted.
Essential hypertension -stable.
Hyperlipidemia -rosuvastatin.
Myelodysplastic syndrome -with chronic anemia, thrombocytopenia.
Full code
Dispo -likely discharge tomorrow after dialysis as per ID.
Anticipated Discharge: Within 24 hours
Subjective/Interval History
-
Date of Service: February 26, 2025
Patient seen and examined, no new complaints.
Objective Data
-
Labs:
Laboratory Results
02/26/25
06:47
WBC 13.8 H
Hgb 9.5 L
Hct 30.2 L
Plt Count 103 L D
Vital Signs:
Vital Signs
Temp Pulse Resp BP Pulse Ox
98.4 F 72 20 148/58 93
02/26/25 08:06 02/26/25 08:06 02/26/25 08:06 02/26/25 08:06 02/26/25 08:06
I&O
02/25/25 02/26/25 02/27/25
06:59 06:59 06:59
Intake Total 327 / 327 240 / 240
Output Total 0 / 0
Balance 327 / 327 240 / 240
Review of Systems
-
History Source: Patient
All other systems: Reviewed and negative
[2025-02-26 10:47] VITALS: BP 147/78; O2SAT 94
[2025-02-26 10:48] VITALS: BP 148/78; PULSE 78; O2SAT 94
[2025-02-26] MEDS: PHOSLO 1334 MG PO ×2 (11:37→16:27)
[2025-02-26] MEDS: ANCEF 5 IV (11:38)
--- NOTE | 2025-02-26 12:20 | CM ---
Patient is for possible discharge to home tomorrow after HD, Patient will be on IV ABX on HD days, script sent to Angie in admissions at [place]. Patient has declined the need for visiting nurses as patient's spouse is a nurse.
Plan; Home tomorrow after HD.
[place] [facility]
[phone]

[facility]
[2025-02-26 15:30] VITALS: BP 138/61
[2025-02-26] MEDS: PROTONIX 40 MG PO (16:27)
[2025-02-26] MEDS: TYLENOL 650 MG PO (17:34)
[2025-02-26] MEDS: CRESTOR 10 MG PO (21:46)
[2025-02-26] MEDS: THERAGRAN 1 TABLET PO (21:46)
[2025-02-26] MEDS: CARDURA 2 MG PO (21:46)
[2025-02-26 23:14] VITALS: BP 136/52
[2025-02-27] MEDS: VENTOLIN NEBULES 2.5 MG INH (00:23)
[2025-02-27 05:35] VITALS: BMI 23.9
[2025-02-27 07:00] VITALS: BP 172/83
[2025-02-27] MEDS: TYLENOL 650 MG PO ×2 (07:22→20:50)
[2025-02-27] MEDS: PHOSLO 667 MG PO (07:23)
[2025-02-27] MEDS: RETACRIT 4000 UNITS IV (08:40)
[2025-02-27] MEDS: MANNITOL 25% 12.5 GRAMS IV ×2 (08:47→10:32)
[2025-02-27 08:59] LABS: Hematocrit 28.8 % (39.0-52.0); Hemoglobin 9.1 g/dL (13.0-18.0); Mean Corp Hgb Conc. 31.6 g/dL (33.0-37.0); Mean Corpuscular Hgb 28.8 pg (27.0-31.0); Mean Corpuscular Volume 91.1 fL (80.0-94.0); Mean Platelet Volume 13.4 fL (7.4-10.4); Platelet Count 139 10^3/uL (130-400); Red Blood Cell Count 3.16 10^6/uL (4.70-6.10); Red Cell Dist. Width 18.8 % (11.5-14.5); White Blood Cell Count 14.1 10^3/uL (4.8-10.8)
[2025-02-27 09:04] LABS: Blood Urea Nitrogen 68 mg/dl (9-20); Calcium 8.8 mg/dl (8.4-10.2); Carbon Dioxide 24 mmol/L (22-30); Chloride 98 mmol/L (98-107); Estimated Creatinine Clearance 9 ml/min; Glucose 145 mg/dl (70-99); Potassium 4.1 mmol/L (3.5-5.1); Sodium 133 mmol/L (135-145); eGFR 7.67
[2025-02-27 09:24] LABS: % Basophils 0.2 % (0-2); % Eosinophils 1.3 % (0-6); % Immature Granulocytes 4.6 % (0-0.5); % Lymphocytes 5.9 % (20.5-51.1); % Monocytes 7.7 % (1.7-9.3); % Neutrophils 80.3 % (42.2-75.2); Absolute Eosinophils 0.2 10^3/uL (0-0.7); Absolute Immature Granulocytes 0.6 10^3/uL (0-0.05); Absolute Lymphocytes 0.8 10^3/uL (1.2-3.4); Absolute Monocytes 1.1 10^3/uL (0.1-0.6); Absolute Neutrophils 11.3 10^3/uL (1.4-6.5); Nucleated Red Blood Cells % 0 % (-)
--- NOTE | 2025-02-27 09:40 | W.PN.HOSP.TC ---
Addendum entered and electronically signed by Raul Valenzuela DO 02/27/25 13:42:
Patient's updated on the phone. All questions answered.
Original Note:
Today's Communication/Plan
-
Cardiology consult
Assessment / Plan
Assessment / Plan
Gen-AAOx3, NAD
HEENT-NC, AT, anicteric, clear oral mm
Neck-supple
CV-reg, no M, +S1/S2
Lungs-clear B/L
Abd-soft, NT, ND
Ext-no edema
Musculoskeletal-no cyanosis, clubbing
Skin-warm and dry
Neuro-grossly non-focal
Psych-calm, cooperative
Acute hypoxic respiratory insufficiency -pulse ox 90% on room air, etiology is likely sepsis and possible pneumonia. Stable on room air.
Wheezing and rhonchi resolved. Discontinue further steroids. Change nebs to as needed.
MSSA sepsis -source of infection pneumonia as per infectious disease. Repeat blood cultures 02/25 still positive.
Currently on IV cefazolin per ID. No vegetation noted on transthoracic echocardiogram.
Plan for [facility] on Saturday.
Community-acquired pneumonia -present on admission. CT chest shows parenchymal opacity in the anterior apex of the left upper lobe. Will need repeat study in 4-6 weeks to document clearance.
WBC count trending down. Afebrile.
ESRD - on dialysis Saturday, , Saturday. Nephrology consulted.
Essential hypertension -stable.
Hyperlipidemia -rosuvastatin.
Myelodysplastic syndrome -with chronic anemia, thrombocytopenia.
Full code
Anticipated Discharge: > 48 hours
Subjective/Interval History
-
Date of Service: February 27, 2025
Patient seen and examined. No complaints. Getting dialysis.
Objective Data
-
Labs:
Laboratory Results
02/27/25 02/27/25
07:28 07:36
WBC 14.1 H
Hgb 9.1 L
Hct 28.8 L
Plt Count 139 D
Sodium 133 L
Potassium 4.1
Chloride 98
Carbon Dioxide 24
BUN 68 H
Creatinine 6.7 H*
Glucose 145 H
Calcium 8.8
Vital Signs:
Vital Signs
Temp Pulse Resp BP Pulse Ox
97.7 F 82 20 172/83 96
02/27/25 07:00 02/27/25 07:00 02/27/25 07:00 02/27/25 07:00 02/27/25 07:00
I&O
02/26/25 02/27/25 02/28/25
06:59 06:59 06:59
Intake Total 240 / 240
Output Total 0 / 0
Balance 240 / 240
Review of Systems
-
History Source: Patient
All other systems: Reviewed and negative
[2025-02-27] MEDS: PHOSLO 1334 MG PO ×2 (12:15→18:05)
[2025-02-27] MEDS: HEPARIN 5000 UNITS SC ×2 (12:16→20:46)
[2025-02-27] MEDS: LASIX 80 MG PO (12:16)
[2025-02-27] MEDS: MUCINEX 600 MG PO ×2 (12:16→20:45)
[2025-02-27] MEDS: MIRALAX PO (12:18)
--- NOTE | 2025-02-27 12:55 | CON.CAR ---
Consultation
Consultation Request
Date/Time Consultation Requested: 02/27/25
Date/Time Consultation Performed: 02/27/25
Requesting Provider: Dr Valenzuela
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
Reason for Consultation: need for ace
Medical History
-
Chief Complaint: bacteremia
History of Present Illness:
84-year-old gentleman known to me in the op setting with a past medical history of HTN, HLD, nonobstructive CAD, ESRD (on HD), anemia & gait disturbance�admitted with MSSA pna/sepsis with persistently positive blood cx. We are asked to arrange ACE.
He denies issues with swallowing.No loose teeth.
TTE 02/25/25 shows aortic sclerosis but not cleared evidence of IE.
Past Medical History
Past Medical History: CAD (nonobstructive), HTN, Hypercholesterolemia, Renal Failure (on hd ) and Other (gait disturbance)
Past Surgical History: Appendectomy and Tonsilectomy
Social History
Tobacco: Former Smoker (quit >10 years ago)
Alcohol: Occasional (very occasionally)
Family History
Family History: Reviewed & Not Pertinent
Allergies / Home Medications
Allergy/AdvReac Type Severity Reaction Status Date / Time
No Known Allergies Allergy Verified 02/23/25 12:40
�Medication �Instructions �Recorded �Confirmed �Type
multivitamin with folic acid 400 1 tab PO HS Supplement 02/21/21 02/23/25 History
mcg tablet (Tab-A-Mike)
rosuvastatin 10 mg tablet 10 mg PO HS High cholesterol 02/21/21 02/23/25 History
cartilage 40 mg-collagen II 10 1 ea PO DAILY herbal 09/07/21 02/23/25 History
mg-boron 5 mg-hyaluronate 3.3 mg
tablet ([facility])
amlodipine 10 mg tablet 10 mg PO HS Blood pressure 10/17/21 02/23/25 History
calcium acetate 667 mg tablet 1,334 mg PO BID@1200,1700 Kidney 02/06/23 02/23/25 History
Disease
furosemide 80 mg tablet 80 mg PO DAILY Fluid 02/06/23 02/23/25 History
retention/Swelling
aspirin 325 mg tablet 325 mg PO BIDPRN PRN fever 02/23/25 02/23/25 History
calcium acetate 667 mg tablet 667 mg PO DAILY Kidney Disease 02/23/25 02/23/25 History
doxazosin 2 mg tablet 2 mg PO HS Blood Pressure 02/23/25 02/23/25 History
pantoprazole 40 mg tablet,delayed 40 mg PO QPM Gastrointestinal Issue 02/23/25 02/23/25 History
release
vitamin B complex-vitamin C-folic 1 tab PO HS Supplement 02/23/25 02/23/25 History
acid 0.8 mg tablet (Velvet-Mike)
Review of Systems
-
All other systems: Negative unless noted
Physical Exam
Vital Signs
Temp Pulse Resp BP Pulse Ox
97.7 F 82 20 172/83 96
02/27/25 07:00 02/27/25 07:00 02/27/25 07:00 02/27/25 07:00 02/27/25 07:00
Lab Results
02/27/25 07:28
02/27/25 07:36
Troponin I Cancelled 02/23/25 12:42
Physical Exam
General: Well Developed and Well Nourished
HEENT: Normocephalic
Respiratory: Clear; Negative Wheezes, Crackles or Rhonchi
Cardiac: S1/S2, Regular Rhythm and Murmur (1/6 systolic heard in all areas); Negative Peripheral Edema
GI: Soft
Neuro: AO x 3
Impression / Plan
-
MSSA sepsis
-persistently positive bld cx
-TTE without clear IE
-ACE 02/28/25 for further evalaution
-npo p mn tomorrow
PNA:
-care per medicine
-respiratory status stable
HTN will resume amlodipine as was on hold.
HLD statin
nonobstructive CAD
ESRD (on HD)
Patient added to the schedule for saturday for ACE, please call for issues in the meantime
Data Reviewed
-
EKG: Tracing Personally Visualized and interpreted (02/23/25 nsr with pacs)
CT Scan: Report Reviewed by me (parenchymal opacity in the anterior apex of the VARGAS)
[2025-02-27] MEDS: ANCEF 15 MG IV (14:22)
--- NOTE | 2025-02-27 14:29 | W.PN.ID1 ---
Date of Service
Date of Service: February 27, 2025
Today's Communication
Recommend PRINCE next week.
Assessment / Plan
# Staph aureus (MSSA) bacteremia
# VARGAS pneumonia
# Leukocytosis
# ESRD on HD via AVF
-TTE: stable, no vege
-Repeat blood cx + MSSA.
-Recommend PRINCE
-Follow repeat blood cx's until clear
-Continue cefazolin to 2g/2g/3g T/Th/S with dialysis
-Trend wbc.
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
Hypertension
End-stage renal disease on dialysis T/Th/S via right upper extremity AV fistula
Chronic thrombocytopenia
Myelodysplastic syndrome
Dyslipidemia
Polyneuropathy
Appendectomy
Thyroglossal duct cyst removal
Chief Complaint
-: Pneumonia and Bacteremia
Subjective / Review of Systems
Cough stable.
Vital Signs / Physical Exam
Vital Signs
Vital Signs
Temp Pulse Resp BP Pulse Ox
97.7 F 82 20 172/83 96
02/27/25 07:00 02/27/25 07:00 02/27/25 07:00 02/27/25 07:00 02/27/25 07:00
Physical Exam
Constitutional: No Acute Distress and Comfortable
Cardiovascular: Regular Rate and S1/S2
Pulmonary: Clear
Gastrointestinal: Soft, Non Tender and Non Distended
Extremities: Negative Edema
Neurological: AO x 3
Objective Data
Lab Data
Lab Results
02/27/25 07:28
02/27/25 07:36
Estimated Creat Clear 9 ml/min 02/27/25 07:36
Lactic Acid Cancelled 02/23/25 17:45
Total Bilirubin 0.7 mg/dl (0.2-1.3) 02/25/25 07:18
AST 37 U/L (17-59) 02/25/25 07:18
ALT 29 U/L (0-50) 02/25/25 07:18
Alkaline Phosphatase 83 U/L (38-126) 02/25/25 07:18
Most recent labs reviewed.
Micro Results:
02/25/25 07:18 Blood Culture - Preliminary
Blood/Venous S aureus-Methicillin Sensitive
Gram Stain - Preliminary
02/25/25 07:18 Blood Culture - Preliminary
Blood/Venous No Growth in 48 hours- Final report to follow
02/26/25 20:46 Blood Culture - Pending
Blood/Venous
02/26/25 17:37 Blood Culture - Pending
Blood/Venous
02/23/25 14:11 Blood Culture - Final
Blood/Venous S aureus-Methicillin Sensitive
Gram Stain - Final
02/23/25 13:00 Blood Culture - Final
Blood/Venous S aureus-Methicillin Sensitive
Gram Stain - Final
02/24/25 02:54 MRSA Screen - Final
Nose No Methicillin Resistant Staphylococcus aureus isolated.
02/23/25 12:56 Influenza Types A & B (GRACE) - Final
Nasal Swab Negative for Influenza A & B, NAAT
Negative results must be combined with clinical observations
and patient history.
Nucleic Acid Amplification test (NAAT)performed on the
[employer] platform.
02/23/[address]: Parenchymal opacity in the anterior apex of the left upper lobe, which could be infectious/inflammatory or neoplastic.
Care Review
Plan reviewed with: Physician (Dr. Valenzuela)
[2025-02-27 15:52] VITALS: BP 139/62
[2025-02-27] MEDS: NORVASC 5 MG PO (18:05)
[2025-02-27] MEDS: PROTONIX 40 MG PO (18:05)
[2025-02-27] MEDS: THERAGRAN 1 TABLET PO (20:45)
[2025-02-27] MEDS: CARDURA 2 MG PO (20:49)
[2025-02-27] MEDS: CRESTOR 10 MG PO (20:49)
[2025-02-27 23:42] VITALS: BP 149/53
[2025-02-28 06:00] VITALS: BMI 24.2
[2025-02-28 07:00] VITALS: BP 138/54
[2025-02-28] MEDS: HEPARIN 5000 UNITS SC ×2 (09:08→20:46)
[2025-02-28] MEDS: MUCINEX 600 MG PO ×2 (09:09→20:46)
[2025-02-28] MEDS: PHOSLO 667 MG PO (09:09)
[2025-02-28] MEDS: MIRALAX PO ×2 (09:09→09:11)
[2025-02-28] MEDS: LASIX 80 MG PO (09:13)
--- NOTE | 2025-02-28 09:57 | W.PN.HOSP.TC ---
Today's Communication/Plan
-
N.p.o. after midnight, PRINCE Saturday
Assessment / Plan
Assessment / Plan
Gen-AAOx3, NAD
HEENT-NC, AT, anicteric, clear oral mm
Neck-supple
CV-reg, no M, +S1/S2
Lungs-clear B/L
Abd-soft, NT, ND
Ext-no edema
Musculoskeletal-no cyanosis, clubbing
Skin-warm and dry
Neuro-grossly non-focal
Psych-calm, cooperative
Acute hypoxic respiratory insufficiency -pulse ox 90% on room air, etiology is likely sepsis and possible pneumonia. Stable on room air.
Wheezing and rhonchi resolved. Discontinue further steroids. Change nebs to as needed.
MSSA sepsis -source of infection pneumonia as per infectious disease. Repeat blood cultures 02/25 still positive. February 26 blood cultures negative so far.
Currently on IV cefazolin per ID. No vegetation noted on transthoracic echocardiogram.
Plan for PRINCE on Saturday.
Community-acquired pneumonia -present on admission. CT chest shows parenchymal opacity in the anterior apex of the left upper lobe. Will need repeat study in 4-6 weeks to document clearance.
WBC count trending down. Afebrile.
ESRD - on dialysis Saturday, , Saturday. Nephrology consulted.
Essential hypertension -stable.
Hyperlipidemia -rosuvastatin.
Myelodysplastic syndrome -with chronic anemia, thrombocytopenia.
Full code
Anticipated Discharge: > 48 hours
Subjective/Interval History
-
Date of Service: February 28, 2025
Patient seen and examined. No complaints.
Objective Data
-
Vital Signs:
Vital Signs
Temp Pulse Resp BP Pulse Ox
98.7 F 75 18 138/54 93
02/28/25 07:00 02/28/25 07:00 02/28/25 07:00 02/28/25 07:00 02/28/25 07:00
I&O
02/27/25 02/28/25 03/01/25
06:59 06:59 06:59
Intake Total 960 / 960
Balance 960 / 960
Review of Systems
-
History Source: Patient
All other systems: Reviewed and negative
--- NOTE | 2025-02-28 11:46 | W.PN.ID1 ---
Date of Service
Date of Service: February 28, 2025
Today's Communication
For PRINCE.
Continue cefazolin
Assessment / Plan
# Staph aureus (MSSA) bacteremia (4 sets bcx's)
# VARGAS pneumonia
# Leukocytosis
# ESRD on HD via AVF
-TTE: stable, no vege
-Repeat blood cx x 2 + MSSA.
-02/26 repeat blood cx's neg to date
-Continue cefazolin to 2g/2g/3g T/Th/S with dialysis
- Appreciate Cardiology. PRINCE tomorrow.
-Trend wbc.
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
Hypertension
End-stage renal disease on dialysis T/Th/S via right upper extremity AV fistula
Chronic thrombocytopenia
Myelodysplastic syndrome
Dyslipidemia
Polyneuropathy
Appendectomy
Thyroglossal duct cyst removal
Chief Complaint
-: Pneumonia and Bacteremia
Subjective / Review of Systems
Cough is better today.
Vital Signs / Physical Exam
Vital Signs
Vital Signs
Temp Pulse Resp BP Pulse Ox
98.7 F 75 18 138/54 93
02/28/25 07:00 02/28/25 07:00 02/28/25 07:00 02/28/25 07:00 02/28/25 07:00
Physical Exam
Constitutional: No Acute Distress and Comfortable
Cardiovascular: Regular Rate and S1/S2
Pulmonary: Clear
Gastrointestinal: Soft, Non Tender and Non Distended
Extremities: Negative Edema
Neurological: AO x 3
Objective Data
Lab Data
Lab Results
02/27/25 07:28
02/27/25 07:36
Estimated Creat Clear 9 ml/min 02/27/25 07:36
Lactic Acid Cancelled 02/23/25 17:45
Total Bilirubin 0.7 mg/dl (0.2-1.3) 02/25/25 07:18
AST 37 U/L (17-59) 02/25/25 07:18
ALT 29 U/L (0-50) 02/25/25 07:18
Alkaline Phosphatase 83 U/L (38-126) 02/25/25 07:18
Most recent labs reviewed.
Micro Results:
02/25/25 07:18 Blood Culture - Preliminary
Blood/Venous Positive culture in progress
Gram Stain - Preliminary
02/26/25 20:46 Blood Culture - Preliminary
Blood/Venous No Growth in 24 hours- Final report to follow
02/26/25 17:37 Blood Culture - Preliminary
Blood/Venous No Growth in 24 hours- Final report to follow
02/25/25 07:18 Blood Culture - Preliminary
Blood/Venous S aureus-Methicillin Sensitive
Gram Stain - Preliminary
02/23/25 14:11 Blood Culture - Final
Blood/Venous S aureus-Methicillin Sensitive
Gram Stain - Final
02/23/25 13:00 Blood Culture - Final
Blood/Venous S aureus-Methicillin Sensitive
Gram Stain - Final
02/24/25 02:54 MRSA Screen - Final
Nose No Methicillin Resistant Staphylococcus aureus isolated.
02/23/25 12:56 Influenza Types A & B (GRACE) - Final
Nasal Swab Negative for Influenza A & B, NAAT
Negative results must be combined with clinical observations
and patient history.
Nucleic Acid Amplification test (NAAT)performed on the
[email or web address] platform.
02/23/[address]: Parenchymal opacity in the anterior apex of the left upper lobe, which could be infectious/inflammatory or neoplastic.
[2025-02-28] MEDS: PHOSLO 1334 MG PO ×2 (13:51→17:43)
[2025-02-28 15:00] VITALS: BP 150/56
--- NOTE | 2025-02-28 16:11 | W.PN.NEPH.PH ---
Today's Communication / Plan
-
Dialysis Saturday no acute need for dialysis today
Assessment/Plan
-
IMP:
Acute hypoxic respiratory insufficiency
Staph aureus sepsis
Left upper lobe PNA
ESRD requiring dialysis TTS
Essential hypertension
Hyperlipidemia
Thrombocytopenia
Myelodysplastic syndrome
History of GI bleed
Polyneuropathy
Ambulatory dysfunction, uses a cane
Chronic anemia
right UE AVF
Plan:
a/w PNA, bld cx staph aureus
cont abx per ID
renal diet
Persistent bacteremia for PRINCE tomorrow
Dialysis Saturday
-
-
Date of Service: February 28, 2025
CC / HPI / ROS
-
Chief Complaint:
ESRD
History of Present Illness:
Presents with shortness of breath pneumonia
Review of Systems:
cough no chest pain no shortness of breath
Labs
-
Labs:
WBC 14.1 10^3/uL (4.8-10.8) H 02/27/25 07:28
RBC 3.16 10^6/uL (4.70-6.10) L 02/27/25 07:28
Hgb 9.1 g/dL (13.0-18.0) L 02/27/25 07:28
Hct 28.8 % (39.0-52.0) L 02/27/25 07:28
Plt Count 139 10^3/uL (130-400) D 02/27/25 07:28
Sodium 133 mmol/L (135-145) L 02/27/25 07:36
Potassium 4.1 mmol/L (3.5-5.1) 02/27/25 07:36
Chloride 98 mmol/L (98-107) 02/27/25 07:36
Carbon Dioxide 24 mmol/L (22-30) 02/27/25 07:36
BUN 68 mg/dl (9-20) H 02/27/25 07:36
Creatinine 6.7 mg/dL (0.7-1.3) H* 02/27/25 07:36
eGFR 7.67 02/27/25 07:36
Glucose 145 mg/dl (70-99) H 02/27/25 07:36
Calcium 8.8 mg/dl (8.4-10.2) 02/27/25 07:36
Albumin 3.4 g/dl (3.5-5.0) L 02/25/25 07:18
Physical Exam
-
Vital Signs:
Vital Signs
Temp Pulse Resp BP Pulse Ox
98.7 F 75 18 138/54 93
02/28/25 07:00 02/28/25 07:00 02/28/25 07:00 02/28/25 07:00 02/28/25 07:00
Respiratory:: Right: Rhonchi
Lung Excursion:: Normal
Abdomen:: Soft
Bowel Sounds:: Normal
Extremity Edema:: None: Bilateral:
[2025-02-28] MEDS: PROTONIX 40 MG PO (17:42)
[2025-02-28] MEDS: NORVASC 5 MG PO (17:43)
[2025-02-28] MEDS: CARDURA 2 MG PO (20:46)
[2025-02-28] MEDS: CRESTOR 10 MG PO (20:46)
[2025-02-28] MEDS: THERAGRAN 1 TABLET PO (20:46)
[2025-02-28 23:39] VITALS: BP 129/58
[2025-03-01 06:00] VITALS: BMI 23.8
[2025-03-01 07:00] VITALS: BP 153/75
--- NOTE | 2025-03-01 09:29 | W.PN.CD ---
Today's Communication / Plan
-
No IE on PRINCE
Cardiology will sign off at this time. Please call with additional questions or concerns.
Impression / Plan
-
MSSA bacteremia with sepsis
-blood cultures positive 02/23-02/25
-TTE without clear IE
-PRINCE 03/01/25 with no evidence of endocarditis
PNA:
-care per medicine
-respiratory status stable
HTN will resume amlodipine as was on hold.
HLD statin
nonobstructive CAD
ESRD (on HD)
Subjective: No CV complaints.
Physical Exam
Vital Signs/Labs
Vital Signs
Temp Pulse Resp BP Pulse Ox
98.2 F 75 17 153/75 95
03/01/25 07:00 03/01/25 07:00 03/01/25 07:00 03/01/25 07:00 03/01/25 07:00
02/28/25 03/01/25 03/02/25
06:59 06:59 06:59
Actual Weight 166 lb 1.6 oz 163 lb 4.8 oz
02/27/25 07:28
02/27/25 07:36
Physical Exam
Constitutional: No acute distress and Comfortable
Cardiovascular: Rhythm & rate is regular, Pedal edema is absent, S1S2 is normal and Murmur/rub/gallop absent
Respiratory: Respiratory effort normal and Lungs clear to auscul.
Neuro/Psych: AO x 3
Data Reviewed
-
Date of Service: March 01, 2025
Medical Decision Making: Reviewed Test Results, Independent Historian Assessment, Test Interpretation and Review of Case with other Provider
EKG: Tracing Personally Visualized and interpreted
Echo: Tracing Personally Visualized and interpreted
Labs: Labs Reviewed by me
--- NOTE | 2025-03-01 09:37 | W.PN.ID1 ---
Addendum entered and electronically signed by Savannah Staples MD 03/01/25 12:43:
Patient noted to have soft induration the size of a grape over RUE AVF. Possible source of MSSA bacteremia also.
Vascular will access. Hold discharge.
Original Note:
Date of Service
Date of Service: March 01, 2025
Today's Communication
-Continue cefazolin to 2g/2g/3g T/Th/S with dialysis through 03/13/25, last dose.
-Weekly CBC, CMP while on abx.
- Infusion sheet for dialysis sent to correctional counselor/case manager.
- Can dc home from ID standpoint.
Assessment / Plan
# Staph aureus (MSSA) bacteremia (4 sets bcx's)
# VARGAS pneumonia
# Leukocytosis
# ESRD on HD via AVF
-TTE: stable, no vege
- 03/01 PRINCE: no endocarditis
-02/26 repeat blood cx's neg to date
-Continue cefazolin to 2g/2g/3g T/Th/S with dialysis through 03/13/25, last dose.
-Weekly CBC, CMP while on abx.
- Infusion sheet for dialysis sent to correctional counselor/case manager.
- Can dc home from ID standpoint.
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
Hypertension
End-stage renal disease on dialysis T/Th/S via right upper extremity AV fistula
Chronic thrombocytopenia
Myelodysplastic syndrome
Dyslipidemia
Polyneuropathy
Appendectomy
Thyroglossal duct cyst removal
Chief Complaint
-: Pneumonia and Bacteremia
Subjective / Review of Systems
Feeling better.
Vital Signs / Physical Exam
Vital Signs
Vital Signs
Temp Pulse Resp BP Pulse Ox
98.2 F 75 17 153/75 95
03/01/25 07:00 03/01/25 07:00 03/01/25 07:00 03/01/25 07:00 03/01/25 07:00
Physical Exam
Constitutional: No Acute Distress and Comfortable
Cardiovascular: Regular Rate and S1/S2
Pulmonary: Clear
Gastrointestinal: Soft, Non Tender and Non Distended
Extremities: Negative Edema
Neurological: AO x 3
Objective Data
Lab Data
Lab Results
02/27/25 07:28
02/27/25 07:36
Estimated Creat Clear 9 ml/min 02/27/25 07:36
Lactic Acid Cancelled 02/23/25 17:45
Total Bilirubin 0.7 mg/dl (0.2-1.3) 02/25/25 07:18
AST 37 U/L (17-59) 02/25/25 07:18
ALT 29 U/L (0-50) 02/25/25 07:18
Alkaline Phosphatase 83 U/L (38-126) 02/25/25 07:18
Most recent labs reviewed.
Micro Results:
02/25/25 07:18 Blood Culture - Preliminary
Blood/Venous S aureus-Methicillin Sensitive
Gram Stain - Preliminary
02/26/25 20:46 Blood Culture - Preliminary
Blood/Venous No Growth in 48 hours- Final report to follow
02/26/25 17:37 Blood Culture - Preliminary
Blood/Venous No Growth in 48 hours- Final report to follow
02/25/25 07:18 Blood Culture - Preliminary
Blood/Venous S aureus-Methicillin Sensitive
Gram Stain - Preliminary
02/23/25 14:11 Blood Culture - Final
Blood/Venous S aureus-Methicillin Sensitive
Gram Stain - Final
02/23/25 13:00 Blood Culture - Final
Blood/Venous S aureus-Methicillin Sensitive
Gram Stain - Final
02/24/25 02:54 MRSA Screen - Final
Nose No Methicillin Resistant Staphylococcus aureus isolated.
02/23/25 12:56 Influenza Types A & B (GRACE) - Final
Nasal Swab Negative for Influenza A & B, NAAT
Negative results must be combined with clinical observations
and patient history.
Nucleic Acid Amplification test (NAAT)performed on the
[employer] platform.
02/23/[address]: Parenchymal opacity in the anterior apex of the left upper lobe, which could be infectious/inflammatory or neoplastic.
Care Review
Plan reviewed with: Physician (Dr. Ocampo)
[2025-03-01] MEDS: HEPARIN 5000 UNITS SC ×2 (10:00→21:03)
[2025-03-01] MEDS: MUCINEX 600 MG PO ×2 (10:01→21:00)
[2025-03-01] MEDS: LASIX 80 MG PO (10:01)
[2025-03-01] MEDS: MIRALAX 17 GRAMS PO (10:01)
[2025-03-01] MEDS: PHOSLO 667 MG PO (10:01)
--- NOTE | 2025-03-01 11:54 | W.PN.HOSP.TC ---
Addendum entered and electronically signed by Nilson Ocampo MD 03/01/25 14:51:
Discussed with son over the phone today
Original Note:
Today's Communication/Plan
-
Continue IV cefazolin. Vascular eval
Assessment / Plan
Assessment / Plan
Gen-AAOx3, NAD
HEENT-NC, AT, anicteric, clear oral mm
Neck-supple
CV-reg, no M, +S1/S2
Lungs-clear B/L
Abd-soft, NT, ND
Ext-no edema. 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
Musculoskeletal-no cyanosis, clubbing
Skin-warm and dry
Neuro-grossly non-focal
Psych-calm, cooperative
Acute hypoxic respiratory insufficiency -pulse ox improved on room air, etiology is volume overload and pneumonia. Stable on room air.
Wheezing and rhonchi resolved. Discontinue further steroids. Change nebs to as needed.
MSSA sepsis -source of infection pneumonia as per infectious disease. Repeat blood cultures 02/25 still positive. February 26 blood cultures negative so far.
Currently on IV cefazolin per ID. No vegetation noted on transthoracic echocardiogram.
Status post PRINCE no vegetations. Cleared for discharge from ID perspective.
Small aneurysm AVF site-nephrology does not clear him for discharge yet and wants vascular to evaluate him.
Community-acquired pneumonia -present on admission. CT chest shows parenchymal opacity in the anterior apex of the left upper lobe. Will need repeat study in 4-6 weeks to document clearance.
WBC count trending down. Afebrile.
ESRD - on dialysis Saturday, , Saturday. Nephrology consulted. On oral diuretics, Lasix 80 mg p.o. daily
Essential hypertension -stable.
Hyperlipidemia -rosuvastatin.
Myelodysplastic syndrome -with chronic anemia, thrombocytopenia.
Full code
Anticipated Discharge: Within 24 hours
Subjective/Interval History
-
Date of Service: March 01, 2025
Denies any chest pain or shortness of breath. Afebrile.
Objective Data
-
Vital Signs:
Vital Signs
Temp Pulse Resp BP Pulse Ox
98.2 F 75 17 153/75 95
03/01/25 07:00 03/01/25 07:00 03/01/25 07:00 03/01/25 07:00 03/01/25 08:15
I&O
02/28/25 03/01/25 03/02/25
06:59 06:59 06:59
Intake Total 960 / 960 720 / 720
Balance 960 / 960 720 / 720
--- NOTE | 2025-03-01 12:50 | CON.VAS ---
Consultation
Consultation Request
Date/Time Consultation Performed: 03/01/25 12:30
Performing Provider: Jet
Reason for Consultation: PSA of AVF
Medical History
-
Chief Complaint: Cough, chest congestion, weakness- resolved
History of Present Illness:
84-year-old male admitted on 02/23/2025 through the emergency room for community-acquired pneumonia. Well-known to the vascular service for procedures listed below. Patient is end-stage renal disease on dialysis Saturday, , Saturday.
Vascular consult today for aneurysmal area of right upper extremity AV fistula. Per the patient there is not been any issue accessing AVF and is receiving full treatments. Patient seen at bedside this a.m. with Dr. Chaudhary. Right upper extremity
radiocephalic AV fistula has a marble sized aneurysmal area at the distal portion with a small scab.
Vascular procedural hx:
02/22/21- Left upper extremity brachial basilic AV fistula creation with single stage basilic vein transposition.
10/18/21- Left upper extremity fistulogram and central venogram. Balloon angioplasty of outflow vein stenosis with 7 mm angioplasty balloon followed by 6 mm cutting angioplasty balloon.
10/25/21- Left upper extremity fistulogram, Central venogram, Angiojet, Balloon angioplasty of perianastomotic stenosis, Balloon angioplasty of outflow vein stenosis
05/16/22- Left upper extremity fistulogram and central venogram. Balloon angioplasty of outflow vein stenosis, Balloon angioplasty with 7 mm angioplasty balloon. Placement of Zilver PTX self-expanding stent in outflow vein. Balloon angioplasty of
immediate outflow vein stenosis
08/16/22- Left upper extremity fistulogram, Right IJ tunnel dialysis catheter with 19 cm tip to cuff Medcomp catheter. Right ventriculogram.
10/10/22- Right upper extremity radiocephalic arteriovenous fistula creation.
02/20/23- Right upper extremity fistulogram and central venogram. Balloon angioplasty of perianastomotic stenosis. Balloon angioplasty of mid outflow vein stenosis
01/22/24- Right upper extremity fistulogram and central venogram. Balloon angioplasty of the outflow vein occlusion with a 6 mm, 8 mm, 7 mm angioplasty balloons.
Past Medical History
Past Medical History: Renal Failure (on HD) and Other (Hyperlipidemia, Thrombocytopenia, Myelodysplastic syndrome, History of GI bleed, Polyneuropathy, Chronic anemia)
Past Surgical History: Appendectomy, Tonsilectomy and Other (RUE AVF, Thyroglossal duct cyst removal)
Social History
Tobacco: Former Smoker
Alcohol: Occasional
Drug: None
Personal:
Living: With Family
Employment: Not Employed
Family History
Family History: Reviewed & Not Pertinent
Allergies / Home Medications
Allergy/AdvReac Type Severity Reaction Status Date / Time
No Known Allergies Allergy Verified 02/23/25 12:40
�Medication �Instructions �Recorded �Confirmed �Type
multivitamin with folic acid 400 1 tab PO HS Supplement 02/21/21 02/23/25 History
mcg tablet (Tab-A-Mike)
rosuvastatin 10 mg tablet 10 mg PO HS High cholesterol 02/21/21 02/23/25 History
cartilage 40 mg-collagen II 10 1 ea PO DAILY herbal 09/07/21 02/23/25 History
mg-boron 5 mg-hyaluronate 3.3 mg
tablet ([facility])
amlodipine 10 mg tablet 10 mg PO HS Blood pressure 10/17/21 02/23/25 History
calcium acetate 667 mg tablet 1,334 mg PO BID@1200,1700 Kidney 02/06/23 02/23/25 History
Disease
furosemide 80 mg tablet 80 mg PO DAILY Fluid 02/06/23 02/23/25 History
retention/Swelling
aspirin 325 mg tablet 325 mg PO BIDPRN PRN fever 02/23/25 02/23/25 History
calcium acetate 667 mg tablet 667 mg PO DAILY Kidney Disease 02/23/25 02/23/25 History
doxazosin 2 mg tablet 2 mg PO HS Blood Pressure 02/23/25 02/23/25 History
pantoprazole 40 mg tablet,delayed 40 mg PO QPM Gastrointestinal Issue 02/23/25 02/23/25 History
release
vitamin B complex-vitamin C-folic 1 tab PO HS Supplement 02/23/25 02/23/25 History
acid 0.8 mg tablet (Velvet-Mike)
Review of Systems
-
History Source: Patient
All other systems: Negative unless noted
Constitutional: Reports Fever, Fatigue and Chills
EENT: Reports No Symptoms
Respiratory: Reports Trouble Breathing
Cardiac: Reports No Symptoms
Vascular: Denies Leg Pain / Claudication
Abdomen/GI: Reports No Symptoms
: Reports No Symptoms
Musculoskeletal: Reports No Symptoms
Skin: Reports Other (scab, swelling at AVF site)
Neurological: Reports No Symptoms
Physical Exam
Vital Signs
Temp Pulse Resp BP Pulse Ox
98.2 F 75 17 153/75 95
03/01/25 07:00 03/01/25 07:00 03/01/25 07:00 03/01/25 07:00 03/01/25 08:15
Lab Results
02/27/25 07:28
02/27/25 07:36
Troponin I Cancelled 02/23/25 12:42
Physical Exam
General: No Apparent Distress
HEENT: Normocephalic and Atraumatic
Respiratory: Non Labored Respirations
Cardiac: Negative JVD
GI: Soft
Musculoskeletal: No Clubbing, No Cyanosis and No Edema
Skin: Warm and Other (Small scab at aneurysmal site of AV fistula, site is about the size of a marble)
Neuro: Awake, Alert and Oriented
Psych: Calm
Assessment / Plan
-
84 yo male here with PNA, vascular consult for right upper extremity radiocephalic AV fistula with small aneurysmal portion with scabbed area
Plan:
- AV fistula ultrasound
- Will follow-up with patient after ultrasound complete for plan
Data Reviewed
-
Labs: Labs Reviewed by me
--- NOTE | 2025-03-01 13:10 | W.PN.NEPH.PH ---
Today's Communication / Plan
-
see plan
Assessment/Plan
-
IMP:
Acute hypoxic respiratory insufficiency
Staph aureus sepsis
Left upper lobe PNA
ESRD requiring dialysis TTS
Essential hypertension
Hyperlipidemia
Thrombocytopenia
Myelodysplastic syndrome
History of GI bleed
Polyneuropathy
Ambulatory dysfunction, uses a cane
Chronic anemia
right UE AVF
Plan:
a/w PNA, bld cx staph aureus
cont abx per ID
renal diet
Persistent bacteremia s/p PRINCE today with no vegetation
AVF site with small aneurysm little hard and erythema-requested vasc to see him
Dialysis Saturday
d/w pt , likely hold d/c
-
-
Date of Service: March 01, 2025
CC / HPI / ROS
-
Chief Complaint:
ESRD
History of Present Illness:
Presents with shortness of breath pneumonia
no fever, Bp stable
Review of Systems:
cough improving, no cp or sob
Labs
-
Labs:
WBC 14.1 10^3/uL (4.8-10.8) H 02/27/25 07:28
RBC 3.16 10^6/uL (4.70-6.10) L 02/27/25 07:28
Hgb 9.1 g/dL (13.0-18.0) L 02/27/25 07:28
Hct 28.8 % (39.0-52.0) L 02/27/25 07:28
Plt Count 139 10^3/uL (130-400) D 02/27/25 07:28
Sodium 133 mmol/L (135-145) L 02/27/25 07:36
Potassium 4.1 mmol/L (3.5-5.1) 02/27/25 07:36
Chloride 98 mmol/L (98-107) 02/27/25 07:36
Carbon Dioxide 24 mmol/L (22-30) 02/27/25 07:36
BUN 68 mg/dl (9-20) H 02/27/25 07:36
Creatinine 6.7 mg/dL (0.7-1.3) H* 02/27/25 07:36
eGFR 7.67 02/27/25 07:36
Glucose 145 mg/dl (70-99) H 02/27/25 07:36
Calcium 8.8 mg/dl (8.4-10.2) 02/27/25 07:36
Albumin 3.4 g/dl (3.5-5.0) L 02/25/25 07:18
Physical Exam
-
Vital Signs:
Vital Signs
Temp Pulse Resp BP Pulse Ox
98.2 F 75 17 153/75 95
03/01/25 07:00 03/01/25 07:00 03/01/25 07:00 03/01/25 07:00 03/01/25 08:15
Respiratory:: Bilateral: CTA
Lung Excursion:: Normal
Abdomen:: Nontender and Soft
Bowel Sounds:: Normal
Extremity Edema:: None: Bilateral:
Chaudhary Catheter: No
Other Findings::
right AVF-see findings in plan
[2025-03-01] MEDS: PHOSLO 1334 MG PO ×2 (13:19→18:25)
[2025-03-01 16:17] VITALS: BP 135/67
[2025-03-01] MEDS: NORVASC 5 MG PO (18:26)
[2025-03-01] MEDS: PROTONIX 40 MG PO (18:26)
[2025-03-01] MEDS: CRESTOR 10 MG PO (21:00)
[2025-03-01] MEDS: THERAGRAN 1 TABLET PO (21:00)
[2025-03-01] MEDS: CARDURA 2 MG PO (21:05)
[2025-03-01 23:38] VITALS: BP 134/57
[2025-03-02 06:00] VITALS: BMI 24.5
[2025-03-02 07:53] LABS: Hematocrit 26.8 % (39.0-52.0); Hemoglobin 8.4 g/dL (13.0-18.0); Mean Corp Hgb Conc. 31.3 g/dL (33.0-37.0); Mean Corpuscular Hgb 29.2 pg (27.0-31.0); Mean Corpuscular Volume 93.1 fL (80.0-94.0); Mean Platelet Volume 11.8 fL (7.4-10.4); Platelet Count 283 10^3/uL (130-400); Red Blood Cell Count 2.88 10^6/uL (4.70-6.10); White Blood Cell Count 12.1 10^3/uL (4.8-10.8)
[2025-03-02 07:55] VITALS: BP 140/65
[2025-03-02] MEDS: HEPARIN 500 UNITS IV ×2 (07:55→08:55)
[2025-03-02] MEDS: PHOSLO PO (08:30)
[2025-03-02] MEDS: MIRALAX 17 GRAMS PO (08:59)
[2025-03-02] MEDS: HEPARIN 5000 UNITS SC (08:59)
--- NOTE | 2025-03-02 08:59 | W.PN.HOSP.TC ---
Today's Communication/Plan
-
Discharge planning today
Assessment / Plan
Assessment / Plan
Gen-AAOx3, NAD
HEENT-NC, AT, anicteric, clear oral mm
Neck-supple
CV-reg, no M, +S1/S2
Lungs-clear B/L
Abd-soft, NT, ND
Ext-no edema. 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
Musculoskeletal-no cyanosis, clubbing
Skin-warm and dry
Neuro-grossly non-focal
Psych-calm, cooperative
Acute hypoxic respiratory insufficiency -pulse ox improved on room air, etiology is volume overload and pneumonia. Stable on room air.
Wheezing and rhonchi resolved. Discontinue further steroids. Change nebs to as needed. Discussed with son over the phone yesterday.
MSSA sepsis -source of infection pneumonia as per infectious disease. Repeat blood cultures 02/25 still positive. February 26 blood cultures negative so far.
Currently on IV cefazolin per ID. No vegetation noted on transthoracic echocardiogram.
Status post PRINCE no vegetations. Cleared for discharge from ID perspective.
Small aneurysm AVF site-nephrology consulted vascular surgery yesterday. Vascular surgeon evaluated the patient and cleared him for discharge.
Community-acquired pneumonia -present on admission. CT chest shows parenchymal opacity in the anterior apex of the left upper lobe. Will need repeat study in 4-6 weeks to document clearance.
WBC count trending down. Afebrile.
ESRD - on dialysis Saturday, , Saturday. Nephrology consulted. On oral diuretics, Lasix 80 mg p.o. daily
Essential hypertension -stable.
Hyperlipidemia -rosuvastatin.
Myelodysplastic syndrome -with chronic anemia, thrombocytopenia.
Full code
Anticipated Discharge: Today
Subjective/Interval History
-
Date of Service: March 02, 2025
No new complaints. No chest pain or shortness of breath. Afebrile
Objective Data
-
Labs:
Laboratory Results
03/02/25
06:59
WBC 12.1 H
Hgb 8.4 L
Hct 26.8 L
Plt Count 283 D
Sodium Pending
Potassium Pending
Chloride Pending
Carbon Dioxide Pending
BUN Pending
Creatinine Pending
Glucose Pending
Calcium Pending
Vital Signs:
Vital Signs
Temp Pulse Resp BP Pulse Ox
98.1 F 77 18 140/65 94
03/02/25 07:55 03/02/25 07:55 03/02/25 07:55 03/02/25 07:55 03/02/25 07:55
I&O
03/01/25 03/02/25 03/03/25
06:59 06:59 06:59
Intake Total 720 / 720
Output Total 0 / 0
Balance 720 / 720 0 / 0
[2025-03-02 09:24] LABS: Blood Urea Nitrogen 65 mg/dl (9-20); Calcium 8.8 mg/dl (8.4-10.2); Carbon Dioxide 21 mmol/L (22-30); Chloride 99 mmol/L (98-107); Estimated Creatinine Clearance 7 ml/min; Glucose 85 mg/dl (70-99); Potassium 4.7 mmol/L (3.5-5.1); Sodium 133 mmol/L (135-145); eGFR 6.11
[2025-03-02] MEDS: RETACRIT 4000 UNITS IV (09:25)
[2025-03-02] MEDS: MANNITOL 25% 12.5 GRAMS IV (10:05)
--- NOTE | 2025-03-02 10:13 | W.PN.ID1 ---
Addendum entered and electronically signed by Savannah Staples MD 03/02/25 13:21:
Per Vascular - follow-up outpt; no concern fo AVF infection.
Can continue cefazolin to 2g/2g/3g T/Th/S with dialysis through 03/13/25, last dose as previously planned
Weekly CBC, CMP while on abx.
Script already sent to HD by manager rn case.
Original Note:
Date of Service
Date of Service: March 02, 2025
Today's Communication
See below.
Assessment / Plan
# Staph aureus (MSSA) bacteremia (4 sets bcx's)
# VARGAS pneumonia
# AVF site pseudoaneurysm
# Leukocytosis - resolving
# ESRD on HD via RUE AVF
-TTE: stable, no vege
- 03/01 PRINCE: no endocarditis
-02/26 repeat blood cx's neg to date
-Continue cefazolin to 2g/2g/3g T/Th/S with dialysis through tentatively through 03/13/25
-IF there is concern for AVF pseudoaneurysm infection, extend cefazolin to 6 weeks.
-Vascular following.
- Infusion sheet for dialysis sent to manager rn case.
# Conditions [employer]
Hypertension
End-stage renal disease on dialysis T/Th/S via right upper extremity AV fistula
Chronic thrombocytopenia
Myelodysplastic syndrome
Dyslipidemia
Polyneuropathy
Appendectomy
Thyroglossal duct cyst removal
Chief Complaint
-: Pneumonia and Bacteremia
Subjective / Review of Systems
Feels well.
Vital Signs / Physical Exam
Vital Signs
Vital Signs
Temp Pulse Resp BP Pulse Ox
98.1 F 77 18 140/65 94
03/02/25 07:55 03/02/25 07:55 03/02/25 07:55 03/02/25 07:55 03/02/25 07:55
Physical Exam
Constitutional: No Acute Distress and Comfortable
Cardiovascular: Regular Rate and S1/S2
Pulmonary: Clear
Gastrointestinal: Soft, Non Tender and Non Distended
Extremities: Negative Edema
Wound: Other (Right wrist AVF site with large grape-size soft induration, no erythema)
Neurological: AO x 3
Objective Data
Lab Data
Lab Results
03/02/25 06:59
03/02/25 06:59
Estimated Creat Clear 7 ml/min 03/02/25 06:59
Lactic Acid Cancelled 02/23/25 17:45
Total Bilirubin 0.7 mg/dl (0.2-1.3) 02/25/25 07:18
AST 37 U/L (17-59) 02/25/25 07:18
ALT 29 U/L (0-50) 02/25/25 07:18
Alkaline Phosphatase 83 U/L (38-126) 02/25/25 07:18
Most recent labs reviewed.
Micro Results:
02/26/25 20:46 Blood Culture - Preliminary
Blood/Venous No Growth in 72 hours- Final report to follow
02/26/25 17:37 Blood Culture - Preliminary
Blood/Venous No Growth in 72 hours- Final report to follow
03/01/25 10:17 Respiratory Culture - Final
Sputum Gram Stain - Final
02/25/25 07:18 Blood Culture - Preliminary
Blood/Venous S aureus-Methicillin Sensitive
Gram Stain - Preliminary
02/25/25 07:18 Blood Culture - Preliminary
Blood/Venous S aureus-Methicillin Sensitive
Gram Stain - Preliminary
02/23/25 14:11 Blood Culture - Final
Blood/Venous S aureus-Methicillin Sensitive
Gram Stain - Final
02/23/25 13:00 Blood Culture - Final
Blood/Venous S aureus-Methicillin Sensitive
Gram Stain - Final
02/24/25 02:54 MRSA Screen - Final
Nose No Methicillin Resistant Staphylococcus aureus isolated.
02/23/25 12:56 Influenza Types A & B ([facility]ACE) - Final
Nasal Swab Negative for Influenza A & B, NAAT
Negative results must be combined with clinical observations
and patient history.
Nucleic Acid Amplification test (NAAT)performed on the
[employer] platform.
02/23/[address]: Parenchymal opacity in the anterior apex of the left upper lobe, which could be infectious/inflammatory or neoplastic.
03/01/25 HD Access Duplex US: Small pseudoaneurysm along the proximal outflow vein as above, approximately 1.1 cm diameter. Relatively wide neck of the pseudoaneurysm, 4 mm. Probable anastomotic stenosis with pulsatile flow throughout the outflow
vein.
--- NOTE | 2025-03-02 10:26 | W.DCSUMMARY ---
Discharge Summary
Discharge Data
Date of Admission: 02/23/25
Date of Discharge: 03/02/25
Total time spent discharging patient (in min): 42
-
Pending Results: No
Hospital Course
Patient 84 years old male with history of hypertension, hyperlipidemia, nonobstructive CAD, end-stage renal disease on hemodialysis, anemia, presented to the hospital with fever and pneumonia. Patient was also bacteremic with MSSA. ID was
consulted. ID felt the source was pneumonia. Cardiology consulted to clarify the source and rule out endocarditis and PRINCE was performed and no evidence of vegetations. He also had small aneurysm in the distal part of his AV fistula and vascular
surgeon evaluated the patient and felt there was no need for any surgical intervention at the moment and will follow-up as outpatient. His blood cultures remain positive for a while and the last blood cultures negative was on 02/26. He will remain
on long-term IV antibiotic per the guidance of ID. Otherwise, patient is hemodynamically stable and afebrile and back to his baseline. He will be discharged in relatively stable condition today.
Discharge duration: 42 minutes
Discharge Plan
-
Patient Disposition: Home with Home Care
Discharge Diagnosis/Procedures: Methicillin sensitive Staphylococcus aureus bacteremia. Pneumonia. End-stage renal disease on hemodialysis. History of myelodysplastic syndrome.
Diet: Low Cholesterol, 2 Gram Sodium and Restrict fluids to 48 oz
Activity: As tolerated
Blood Work: Please PCP to order CBC, BMP within 1 week
Referrals:
Royce Chaudhary III, MD [Active, Vascular Surgery] - in two to four weeks
Nay Albert PA-C [Family Provider, Family Practice] - in less than 1 week
Aubree Barrett MD [Active, Nephrology] - in one to two weeks
Ida Krueger CRNP [Specified Professional Personl, Vascular Surgery] - 03/09/25 1:30 pm
Referral Note: Vascular surgery office visit
Savannah Staples MD [Active, Infectious Diseases] - in two to four weeks
Prescriptions:
New
cefazolin 10 gram Recon Soln
2 g IV TUTH Qty: 10 0RF
Continued
multivitamin with folic acid [Tab-A-Mike] 1 TABLET tablet
1 tab PO HS
rosuvastatin 10 MG tablet
10 mg PO HS
Joint Health 1 EACH tablet
1 ea PO DAILY
amlodipine 10 MG tablet
10 mg PO HS
calcium acetate 667 mg Tablet
1,334 mg PO BID@1200,1700
furosemide 80 mg tablet
80 mg PO DAILY
aspirin 325 mg Tablet
325 mg PO BIDPRN PRN (Reason: fever)
Velvet-Mike 0.8 mg tablet
1 tab PO HS
doxazosin 2 mg Tablet
2 mg PO HS
calcium acetate 667 mg Tablet
667 mg PO DAILY
pantoprazole 40 mg tablet,delayed release (DR/EC)
40 mg PO QPM
Discharge Orders:
Discharge Patient (As Directed); Ordered 03/02/25
Ordered By: Nilson Ocampo
Discharge Date and Time
Print Language: UKRAINIAN
--- NOTE | 2025-03-02 11:49 | W.PN.NEPH.HD ---
Assessment
-
Seen on HD. no complaints. VSS, access ok
OP VS f/u
Progress Note - Hemodialysis
-
Date of Service: March 02, 2025
Duration: 30 minutes and 3 hours
Potassium Bath: 2
Calcium Bath: 2.5
Opti-Dialyzer: 160
Ultrafiltration: Other (2kg)
Blood Flow: 400
Dialysate Flow: 600
Heparin: 500x2
EPO: 4000 units
--- NOTE | 2025-03-02 12:02 | CM ---
CM reviewed chart, patient seen bedside, for discharge today. Patient confirms his will provide transportation home later this afternoon. Patient denies need for VN at this time. IMM verbally reviewed, provided with copy, placed on chart.
Patient will require IV antibiotics on HD days, will fax updated script to [facility] if needed.
Plan; home with , continue outpatient HD, IV antibiotics on HD days
[facility]
[phone]
[2025-03-02] MEDS: LASIX 80 MG PO (12:32)
[2025-03-02] MEDS: MUCINEX 600 MG PO (12:33)
[2025-03-02] MEDS: PHOSLO 1334 MG PO (12:33)
[2025-03-02] MEDS: ANCEF 10 IV (13:06)
[2025-03-02 15:30] VITALS: BP 143/61
== END 2025-03-02 16:52 | disposition home or self-care (01) | DRG 871 ==
LOC: 4 WEST ACU 17:27
PROVIDERS: Internal Medicine Nephrology; Physician Assistant; Specialist; Student in an Organized Health Care Education/Training Program; ADMITTING PHYSICIAN Hospitalist; ATTENDING PHYSICIAN Hospitalist; CONSULT PHYSICIAN Internal Medicine; CONSULT PHYSICIAN Internal Medicine Cardiovascular Disease; EMERGENCY PHYSICIAN Emergency Medicine; FAMILY PHYSICIAN Physician Assistant Medical; OTHER PHYSICIAN Internal Medicine Infectious Disease; OTHER PHYSICIAN Surgery Vascular Surgery
PROC: 5A1D70Z Performance of Urinary Filtration, Intermittent, Less than 6 Hours Per Day (ICD-10-PCS; 2025-02-25)
PROC: B24BZZ4 Ultrasonography of Heart with Aorta, Transesophageal (ICD-10-PCS; 2025-03-01)
DX: A41.01 Sepsis due to Methicillin susceptible Staphylococcus aureus (principal); J18.9 Pneumonia, unspecified organism; N18.6 End stage renal disease; I12.0 Hypertensive chronic kidney disease with stage 5 chronic kidney disease or end stage renal disease; Z11.52 Encounter for screening for COVID-19; Z87.891 Personal history of nicotine dependence; D69.6 Thrombocytopenia, unspecified; R09.02 Hypoxemia; E78.00 Pure hypercholesterolemia, unspecified; E78.49 Other hyperlipidemia; D46.9 Myelodysplastic syndrome, unspecified
CPT/HCPCS: 71046; 71250; 80048; 80053; 83605; 85025; 85027; 87040; 87070; 87150; 87186; 87205; 87502; 87811; 93005; 93306; 93312; 93320; 93325; 93990; 94640; 96365; 96375; 97163; 97167; 97530; 97535; 99285; G0257; P9047; Q5106

== ENCOUNTER → 2025-03-11 12:25 | Outpatient (REF) | payer MEDICARE, OTHER, SELFPAY ==
[2025-03-11 13:40] LABS: % Basophils 1.7 % (0-2); % Eosinophils 1.5 % (0-6); % Immature Granulocytes 1.7 % (0-0.5); % Lymphocytes 16.7 % (20.5-51.1); % Monocytes 17.1 % (1.7-9.3); % Neutrophils 61.3 % (42.2-75.2); Absolute Basophils 0.1 10^3/uL (0-0.2); Absolute Eosinophils 0.1 10^3/uL (0-0.7); Absolute Immature Granulocytes 0.1 10^3/uL (0-0.05); Absolute Lymphocytes 0.9 10^3/uL (1.2-3.4); Absolute Monocytes 0.9 10^3/uL (0.1-0.6); Absolute Neutrophils 3.4 10^3/uL (1.4-6.5); Hematocrit 28.8 % (39.0-52.0); Hemoglobin 8.6 g/dL (13.0-18.0); Mean Corp Hgb Conc. 29.9 g/dL (33.0-37.0); Mean Corpuscular Hgb 29.3 pg (27.0-31.0); Mean Platelet Volume 11.2 fL (7.4-10.4); Nucleated Red Blood Cells % 0 % (-); Platelet Count 131 10^3/uL (130-400); Red Blood Cell Count 2.94 10^6/uL (4.70-6.10); Red Cell Dist. Width 20.3 % (11.5-14.5); White Blood Cell Count 5.5 10^3/uL (4.8-10.8)
[2025-03-11 13:46] LABS: Blood Urea Nitrogen 10 mg/dl (9-20); Calcium 8.9 mg/dl (8.4-10.2); Carbon Dioxide 32 mmol/L (22-30); Chloride 102 mmol/L (98-107); Glucose 84 mg/dl (70-99); Potassium 4.1 mmol/L (3.5-5.1); Sodium 141 mmol/L (135-145); eGFR 21.84
== END ==
LOC: REG 12:25
PROVIDERS: ATTENDING PHYSICIAN Physician Assistant Medical
DX: N18.6 End stage renal disease (principal); D72.829 Elevated white blood cell count, unspecified
CPT/HCPCS: 36415; 80048; 85025

== ENCOUNTER → 2025-04-14 13:11 | Outpatient (REF) | payer MEDICARE, OTHER, SELFPAY | LOC: HWRAD 13:11 | PROVIDERS: ATTENDING PHYSICIAN Physician Assistant Medical | DX: J18.9 Pneumonia, unspecified organism (principal); R78.81 Bacteremia; R91.1 Solitary pulmonary nodule | CPT/HCPCS: 71250 ==

== ENCOUNTER → 2025-08-25 08:01 | Outpatient (REF) | payer MEDICARE, OTHER, SELFPAY | LOC: HWRAD 08:01 | PROVIDERS: ATTENDING PHYSICIAN Internal Medicine Critical Care Medicine; FAMILY PHYSICIAN Physician Assistant Medical | DX: J18.9 Pneumonia, unspecified organism (principal) | CPT/HCPCS: 71250 ==